=== PATIENT | female | born 1940 | race Caucasian/White ===

== ENCOUNTER → 2020-11-06 03:36 | Outpatient (CLI) | payer MEDICARE, SELFPAY ==
[2020-11-08 12:58] LABS: SARS-CoV-2 RNA PCR Negative
== END ==
PROVIDERS: PCP Family Medicine; Visit Provider Internal Medicine Gastroenterology
DX: Z01.812 Encounter for preprocedural laboratory examination (principal); Z20.822 Contact with and (suspected) exposure to COVID-19
CPT/HCPCS: C9803; U0003; U0005

== ENCOUNTER 2020-11-09 01:40 | Day surgery (SDC) | payer MEDICARE, SELFPAY ==
[2020-10-31 14:43] VITALS: BMI 25.7
[2020-11-09 08:47] VITALS: BP 162/69; PULSE 95; RESP 18; TEMP 35.9; O2SAT 98
[2020-11-09] MEDS: LACTATED RINGERS 1,000 ML 150 ML IV CONT (09:01)
[2020-11-09 09:06] LABS: Glucose Point of Care 182 mg/dl (65-105)
--- NOTE | 2020-11-09 10:03 | PM.HPGS ---
History of Present Illness History of Present Illness Consent: Risks, benefits, and alternatives have been discussed and questions answered. Patient agrees to proceed with procedure. Chief complaint: iron def, anemia Narrative: Mere Woods is a 79 year old female referred for colon cancer screening. She also has been found to be anemic recently Review of Systems Review of Systems: All systems reviewed & are unremarkable except as noted in HPI and below PMFSH Past Medical History Medical History Benign essential hypertension with target blood pressure below 140/90 Gastro-esophageal reflux disease without esophagitis Iron deficiency anemia, unspecified Type 2 diabetes mellitus with diabetic neuropathy, unspecified Surgical History Surgical History H/O arthroscopy of shoulder H/O cataract extraction Family History Family History Sibling Diabetes mellitus Family history of lung cancer, Onset Age: 75 Family history of malignant neoplasm of bone Mother Diabetes mellitus Hypertension Family history of cardiovascular disease Father Family history of cardiovascular disease Social History Social History Smoking packs per day: 1 Smoking cigarettes per day: 20.0 Years smoked: 35 Smoking pack-years: 35.00 Smoking status: Former smoker Tobacco type: cigarettes Alcohol intake: never Substance use: never Substance use type: does not use Living arrangements: alone Spiritual care concerns: No Meds Home Medications and Allergies Home Medications Medication Instructions Recorded Confirmed Type aspirin 81 mg tablet,delayed 81 mg PO DAILY 05/11/19 10/31/20 History release magnesium 250 mg tablet 250 mg PO DAILY 05/11/19 10/31/20 History blood sugar diagnostic #100 each 12/28/19 10/11/20 Rx blood-glucose meter #1 each 12/30/19 10/11/20 Rx metformin 500 mg tablet 1,000 mg PO BID #360 tablet 01/12/20 10/31/20 Rx hydrochlorothiazide 12.5 mg capsule 12.5 mg PO DAILY #90 cap 02/11/20 10/31/20 Rx glimepiride 4 mg tablet 4 mg PO QAM #90 tablet 05/19/20 10/31/20 Rx pravastatin 40 mg tablet 40 mg PO DAILY #90 tablet 08/15/20 10/31/20 Rx ferrous sulfate 325 mg (65 mg 325 mg PO BID #60 tablet 10/11/20 10/31/20 Rx iron) tablet telmisartan 80 mg tablet 80 mg PO DAILY #30 tablet 10/11/20 10/31/20 Rx gabapentin 300 mg PO HS 10/31/20 10/31/20 History omega-3 fatty acids-fish oil 1 cap PO DAILY 10/31/20 10/31/20 History [[place] 3 Fish Oil] Allergies Allergy/AdvReac Type Severity Reaction Status Date / Time cephalexin Allergy Intermediate itching Verified 11/09/20 08:45 ezetimibe Allergy Intermediate Muscle Pain Verified 11/09/20 08:45 rosuvastatin Allergy Intermediate Muscle Pain Verified 11/09/20 08:45 simvastatin [Vytorin] Allergy Intermediate Muscle Pain Verified 11/09/20 08:45 tramadol Allergy Intermediate Hives Verified 11/09/20 08:45 clarithromycin AdvReac Intermediate Nausea Verified 11/09/20 08:45 codeine AdvReac Intermediate Nausea Verified 11/09/20 08:45 oxycodone AdvReac Intermediate Nausea Verified 11/09/20 08:45 Sulfa (Sulfonamide AdvReac Intermediate Nausea Verified 11/09/20 08:45 Antibiotics) TRAMADOL HCL Allergy Intermediate Hives Uncoded 11/09/20 08:45 Vital Signs Vital Signs - 24 hr 11/09/20 08:47 Temperature 35.9 C L Pulse Rate 95 Respiratory Rate 18 Blood Pressure 162/69 H Pulse Oximetry 98 Exam Const: General: alert Orientation/consciousness: patient oriented x3 Resp: Auscultation: clear to auscultation bilaterally Cardio: Rhythm: regular rhythm GI: GI Palp: Yes Soft to palpation and No Tenderness to palpation present (GI) Neuro: General: patient oriented x3 Assessment and Plan Assessment and plan (1) Colon can
[2020-11-09 10:21] VITALS: BP 150/86; PULSE 107; RESP 19; O2SAT 96
[2020-11-09 10:31] VITALS: BP 163/90; PULSE 94; RESP 20; O2SAT 96
[2020-11-09 10:41] VITALS: BP 144/102; PULSE 88; RESP 25; O2SAT 99
== END 2020-11-09 10:58 | disposition home or self-care (01) ==
PROVIDERS: PCP Family Medicine; Visit Provider Internal Medicine Gastroenterology
PROC: 0DJD8ZZ Inspection of Lower Intestinal Tract, Via Natural or Artificial Opening Endoscopic (ICD-10-PCS; CPT 45378; principal; 2020-11-09 11:00)
DX: Z12.11 Encounter for screening for malignant neoplasm of colon (principal); I10 Essential (primary) hypertension; K21.9 Gastro-esophageal reflux disease without esophagitis; D50.9 Iron deficiency anemia, unspecified; E11.40 Type 2 diabetes mellitus with diabetic neuropathy, unspecified; Z87.891 Personal history of nicotine dependence; K57.30 Diverticulosis of large intestine without perforation or abscess without bleeding
CPT/HCPCS: G0121; 82948; J2704; J7120

== ENCOUNTER → 2021-11-07 09:47 | Outpatient (CLI) | payer MEDICARE, SELFPAY ==
--- NOTE | ~2021-11-07 | XR_ITS ---
XR lumbar spine 6V w bending 11/07/2021 10:23 Indication: Low back pain Procedure: 7 views of the lumbar spine including flexion/extension views Comparison: No prior studies for comparison. Findings: There is significant loss of disc height at all lumbar levels. Vertebral body heights are m aintained. No significant alteration of alignment with flexion/extension. There is mild dextrocurvatu re of the lumbar spine centered at L2. Pedicles intact. Sacral foramen are symmetric. There are soo nal osteophytes at multiple levels. There is atherosclerosis of the aorta and iliac vessels. There is atherosclerosis of the splenic artery. Impression: 1: Severe lumbar spondylosis. Reviewed, dictated and finalized at location A. Impression: 1: Severe lumbar spondylosis.
== END ==
PROVIDERS: PCP Family Medicine; Visit Provider Family Medicine
DX: M47.816 Spondylosis without myelopathy or radiculopathy, lumbar region (principal); I70.209 Unspecified atherosclerosis of native arteries of extremities, unspecified extremity; I70.0 Atherosclerosis of aorta
CPT/HCPCS: 72114

== ENCOUNTER 2022-06-05 10:04 | Outpatient (CLI) | payer MEDICARE, SELFPAY ==
--- NOTE | ~2022-06-05 | DEXA_ITS ---
Bone Density Report Name: LILIBETH CARBAJAL Age: 81 Sex: Female Ethnicity: White Date of : 1940 Indication: osteopenia; height loss; postmenopausal Referring Provider: FAMILIA DYE Study: Bone densitometry was performed. Exam Date: June 05, 2022 Accession number: [id number] Bone Density: Region BMD T-score Z-score Classification AP Spine(L1-L4) 1.178 1.2 3.9 Normal Femoral Neck (Left) 0.685 -1.5 0.8 Osteopenia Total Hip (Left) 0.815 -1.0 1.0 Normal Femoral Neck (Right) 0.673 -1.6 0.7 Osteopenia Total Hip (Right) 0.780 -1.3 0.8 Osteopenia Total Hip Mean 0.798 -1.2 0.9 Osteopenia World Health Organization criteria for BMD impression classify patients as: Normal (T-score at or above -1.0), Osteopenia (T-score between -1.0 and -2.5), or Osteoporosis (T-score at or below -2.5). 10-year Fracture Risk(1): Major Osteoporotic Fracture 14% Hip Fracture 3.3% Reported Risk Factors: [place] (), Neck BMD=0.673, BMI=26.3 (1) FRAX(R) Version 3.08. Fracture probability calculated for an untreated patient. Fracture probability may be lower if the patient has received treatment. Previous Exams: Region Exam Age BMD T-score BMD Change BMD Change Date g/cm2 vs Baseline vs Previous AP Spine (L1-L4) 06/05/2022 81 1.178 1.2 0.086 (7.9%)# 0.086 (7.9%)# 05/10/2011 70 1.092 0.4 Total Hip(Left) 06/05/2022 81 0.815 -1.0 -0.061 (-7.0%) -0.061 (-7.0%) 05/10/2011 70 0.877 -0.5 Total Hip(Right) 06/05/2022 81 0.780 -1.3 -0.009 (-1.1%) -0.009 (-1.1%) 05/10/2011 70 0.789 -1.3 *Denotes significance at 95% confidence level, LSC for AP Spine = 0.022 g/cm2, LSC for Total Hip = 0.027 g/cm2 # Denotes dissimilar scan types or analysis methods Clinical Information Provided by Patient: Has used the following medications: Vitamin D, Calcium Patient maximum height was 65 Menopause Age: 43 Drinks caffeinated beverages Onset of menses at age 11 Number of children 2 Impression: The patient has low bone mass, based on the Right Femoral Neck T-score. The patient has an estimated ten-year risk of hip fracture of 3.3% and an estimated ten-year risk of major fracture of 14%, based on the WHO FRAX algorithm. No significant bone loss was observed. Discussion: BONE DENSITY IS LOW AT ONE OR MORE SKELETAL SITES. THE PATIENT'S BMD AND CLINICAL RISK FACTORS CONTRIBUTE TO THIS PATIENT'S INCREASED RISK OF FRACTURE. Th
== END 2022-06-05 10:05 | disposition home or self-care (01) ==
LOC: ANHIMG 10:07
PROVIDERS: PCP Family Medicine; Visit Provider Family Medicine
DX: Z78.0 Asymptomatic menopausal state (principal); M85.89 Other specified disorders of bone density and structure, multiple sites
CPT/HCPCS: 77080

== ENCOUNTER → 2023-02-04 13:33 | Outpatient (CLI) | payer MEDICARE, SELFPAY ==
--- NOTE | ~2023-02-04 | XR_ITS ---
XR knee RT 3V 02/04/2023 13:45 Indication: Right knee pain Procedure: 3 views right knee Comparison: No prior studies for comparison. Findings: No fracture, subluxation or dislocation. No significant joint effusion. No foreign bodies. No significant joint space narrowing. Impression: 1: No significant bone or joint abnormality. Reviewed, dictated and finalized at location L. Impression: 1: No significant bone or joint abnormality.
== END ==
PROVIDERS: PCP Internal Medicine; Visit Provider Nurse Practitioner
DX: M25.561 Pain in right knee (principal)
CPT/HCPCS: 73562

== ENCOUNTER 2023-05-07 09:40 | Emergency (ER) | payer MEDICARE, SELFPAY ==
[2023-05-07 09:51] VITALS: BP 141/81; PULSE 90; RESP 16; TEMP 36.4; O2SAT 99
--- NOTE | 2023-05-07 10:05 | ED.URI ---
HPI - URI/Sore Throat General Chief Complaint: Upper Respiratory Infection Stated Complaint: Sore Throat;[place] eye Time Seen by Provider: 05/07/23 10:10 Source: patient and RN notes reviewed Mode of arrival: ambulatory Limitations: no limitations History of Present Illness HPI Narrative: 82-year-old female presents with concern for scratchy throat. She reports she woke up with her eye crusted shut this morning. She reports drainage to the eye. She denies vision changes. Reports she has taken Nika LEWIS elicited complaint: sore throat Related Data Home Medications Medication Instructions Recorded Confirmed aspirin 81 mg tablet,delayed 81 mg PO DAILY 05/11/19 05/07/23 release magnesium 250 mg tablet 250 mg PO DAILY 05/11/19 05/07/23 omega-3 fatty acids-fish oil 684 1 cap PO DAILY 10/31/20 05/07/23 mg-1,200 mg capsule,delayed release ferrous sulfate 325 mg (65 mg 325 mg PO DAILY 02/28/22 05/07/23 iron) tablet Allergies Allergy/AdvReac Type Severity Reaction Status Date / Time cephalexin Allergy Intermediate itching Verified 05/07/23 10:06 ezetimibe Allergy Intermediate Muscle Pain Verified 05/07/23 10:06 rosuvastatin Allergy Intermediate Muscle Pain Verified 05/07/23 10:06 simvastatin [Vytorin] Allergy Intermediate Muscle Pain Verified 05/07/23 10:06 tramadol Allergy Intermediate Hives Verified 05/07/23 10:06 acetaminophen [From Vicodin] AdvReac Intermediate Hives Verified 05/07/23 10:06 clarithromycin AdvReac Intermediate Nausea Verified 05/07/23 10:06 codeine AdvReac Intermediate Nausea Verified 05/07/23 10:06 hydrocodone [From Vicodin] AdvReac Intermediate Hives Verified 05/07/23 10:06 oxycodone AdvReac Intermediate Nausea Verified 05/07/23 10:06 Sulfa (Sulfonamide AdvReac Intermediate Nausea Verified 05/07/23 10:06 Antibiotics) TRAMADOL HCL Allergy Intermediate Hives Uncoded 05/07/23 10:06 Review of Systems Review of Systems: CONSTITUTIONAL: Denies malaise, chills, sweats, or fever. EYES: Denies visual changes. Reports left eye redness, discharge. ENT: Reports rhinorrhea, congestion, and sore throat. CARDIOVASCULAR: Denies chest pain, palpitations, or edema. RESPIRATORY: Reports cough. Denies dyspnea. GASTROINTESTINAL: Denies abdominal pain, nausea, vomiting, diarrhea SKIN: Denies rash or itching. MUSCULOSKELETAL: Denies myalgia. NEUROLOGIC: Denies headache. All systems reviewed & are unremarkable except as noted in HPI and below PMFSH Past Medical History Medical History Benign essential hypertension with target blood pressure below 140/90 Gastro-esophageal reflux disease without esophagitis Iron deficiency anemia, unspecified Type 2 diabetes mellitus with diabetic neuropathy, unspecified Surgical History Surgical History H/O arthroscopy of shoulder H/O cataract extraction Family History Family History Sibling Diabetes mellitus Family history of lung cancer, Onset Age: 75 Family history of malignant neoplasm of bone Mother Diabetes mellitus Hypertension Family history of cardiovascular disease Father Family history of cardiovascular disease Social History Social History Smoking packs per day: 1 Smoking cigarettes per day: 20.0 Years smoked: 35 Smoking pack-years: 35.00 Smoking status: Former smoker Tobacco type: cigarettes Alcohol intake: current Substance use: never Substance use type: does not use Lack of Transportation: No Lack of Food: Never True Current Housing: I Have Housing Concerned About Future Housing: No Difficulty Paying Gas/Electric Bills: Decline to Answer Difficulty Paying for Meds: No Currently Unemployed: No Education: High School Diploma/GED Difficulty w/ Childcare or F
== END 2023-05-07 10:32 | disposition home or self-care (01) ==
PROVIDERS: Emergency Provider Nurse Practitioner; PCP Internal Medicine
DX: J06.9 Acute upper respiratory infection, unspecified (principal); H10.9 Unspecified conjunctivitis; Z87.891 Personal history of nicotine dependence; I10 Essential (primary) hypertension; K21.9 Gastro-esophageal reflux disease without esophagitis; E11.42 Type 2 diabetes mellitus with diabetic polyneuropathy; D50.9 Iron deficiency anemia, unspecified; Z79.82 Long term (current) use of aspirin
CPT/HCPCS: 87081; 87880; 99213; G0463

== ENCOUNTER 2023-06-18 09:55 | Outpatient (CLI) | payer MEDICARE, SELFPAY ==
--- NOTE | ~2023-06-18 | XR_ITS ---
EXAMINATION: XR shoulder RT min 2V DATE: 06/18/2023 10:24 INDICATION: Right shoulder pain after repetitive lifting TECHNIQUE: AP internally and externally rotated, AP oblique externally rotated and axillary views of the right shoulder were obtained. COMPARISON: None FINDINGS: Normal alignment. No fracture.Mild glenohumeral osteoarthritis with cephalad predominant nonuniform joint space narrowing and small marginal osteophytes along the posterior and inferior glenoid. Modera te acromioclavicular osteoarthritis. Soft tissues are unremarkable. Visualized portions of the lungs are clear. IMPRESSION: Mild right glenohumeral and moderate acromioclavicular osteoarthritis. Reviewed, dictated and finalized at location A. MOLDER
== END 2023-06-18 09:56 ==
PROVIDERS: PCP Internal Medicine; Visit Provider Nurse Practitioner
DX: M19.011 Primary osteoarthritis, right shoulder (principal)
CPT/HCPCS: 73030

== ENCOUNTER 2024-09-13 12:40 | Outpatient (CLI) | payer MEDICARE, SELFPAY ==
--- NOTE | ~2024-09-13 | US_ITS ---
US retroperitoneal comp 09/13/2024 12:58 Procedure: Realtime transabdominal ultrasound of the kidneys and bladder. Indication: Chronic kidney disease stage III Comparison: No prior studies for comparison. Findings: Renal echotexture is normal bilaterally without hydronephrosis, contour deforming mass or r enal calculus. The right kidney measures 9.8 cm and left kidney measures 10.8 cm. There are left luis manuel l cysts, largest measuring 2.7 cm. Bladder within normal limits. Impression: 1: Unremarkable renal ultrasound. No stones, masses or hydronephrosis. Reviewed, dictated and finalized at location A. Impression: 1: Unremarkable renal ultrasound. No stones, masses or hydronephrosis.
== END 2024-09-13 12:41 | disposition home or self-care (01) ==
LOC: GOSHIMG 12:42
PROVIDERS: PCP Specialist; Visit Provider Specialist
DX: N18.30 Chronic kidney disease, stage 3 unspecified (principal)
CPT/HCPCS: 76770

== ENCOUNTER 2025-03-07 11:43 | Inpatient (IN) | payer MEDICARE, SELFPAY ==
--- OUTSIDE RECORDS SUMMARY | 2015-03-01 05:10 | XMS_ITS | Continuity of Care Document ---
Author Organization [facility] Address [address] [place] [address] Phone Care Team Providers Care Lead Tank Mechanic Name Role Phone Rai Hwang MD Unavailable Unavailable Allergies, Adverse Reactions, Alerts Substance Reaction Status Criticality trimethadione Active No Information TRAMADOL HCL Active No Information clarithromycin Nausea / Vomiting Active No Infor mation sulfamethoxazole Nausea/Vomiting Active No Infor mation CEPHALEXIN MONOHYDRATE Nausea/Vomiting Active No Information codeine Nausea/Vomiting Active No Informati on Medications Medication Instructions Dosage Effective Dates (start - stop) Status Comments GEMFIBROZIL (unknown strength) Not Available - Active METFORMIN HCL (unknown strength) Not Available - Active GLIMEPIRIDE (unknown strength) Not Available - Active FISH OIL (unknown strength) Not Available - Active VITAMIN D3 (unknown strength) Not Available - Active Advance Directives Directive Yes / No Effective Date File Name No Information Encounters Encounter Description Practice Location Reason(s) For Visit Diagnoses Date Provider Providers Copied on Encounter [facility] , [address] [facility] [address], [place], [address], [phone] [facility] Dupuytren's contracture of left hand Sep- 5 Eri Atwood. [address] [place], [place], [id number] . tel: [phone] Family History Family Member Type Diagnosis Age At Onset Mother Problem (finding) Heart disease Payers Payer name Insurance type Covered green party ID Authoriza tion(s) Railroad Medicare E2 MB [id number] [place] [employer] F [id number] Social History Type Description Quantity Date Captured Comments Alcohol Use Details No Caffeine Use Details Unknown Tobacco Use Status No Information Smoking Status Unknown if ever smoked Non-Smoking Tobacco Use Details : No Details Available : No Details Available Sex Female Vital Signs Date / Time: Height Weight BMI Pulse Rate Blood Pressure Temperature Respiratory Rate Body Surface Area Head Circumference Head Circ. Percentile Wt./Luis. Percentile BMI percentile Pulse Ox Inhaled Ox 9:59 AM 64.00 in 69.400 kg (153.00 lbs) 26.2 6 kg/m eter (2) 140/79 mm[Hg] Chief Complaint And Reason For Visit No Information Reason For Referral Reason For Referral No Information Plan Of Treatment Date Type Action Status Referral Ordered: RADEX HAND MINIMUM 3 VIEWS LT hand ordered History Of Present Illness Encounter Date Complaint History Of Prese nt Illness No Information Functional Status Date Functional Assessmen t No Information Instructions Date Instruction Additional Infor mation Discussed treatment options. Rel ated to Dupuytren's contracture of left hand Assessments Type Assessment Date assessment Dupuytren's contracture of left hand Patient Care Teams Name Effective Dates (start - stop) Status Members No Information
--- OUTSIDE RECORDS SUMMARY | 2015-03-01 05:10 | XMS_ITS | Continuity of Care Document ---
Author Organization [facility] Address [address] [place] [address] Phone Care Team Providers Care Alligator Trapper Name Role Phone Rai Hwang MD Unavailable [...] Providers Copied on Encounter [facility] , [address] [facility] [address], [place], [address], [phone] [facility] Dupuytren's contracture of left hand Sep- 5 Eri Atwood. [address] [place], [place], [id number] . tel: [phone] Family History Family Member Type Diagnosis Age At Onset Mother Problem (finding) Heart disease Payers Payer name Insurance type Covered alliance party ID Authoriza tion(s) Railroad Medicare E2 MB [id number] [place] [employer] F [id number] Social History Type Description Quantity Date [...]
--- OUTSIDE RECORDS SUMMARY | 2024-08-27 11:15 | XMS_ITS ---
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) Type 2 diabetes mellitus with diabetic chronic kidney disease (E11.22) Active confirmed Problem Proteinuria (16978779) Proteinuria, unspecified (R80.9) Active confirmed Problem Magnesium deficiency (372726572) 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) Active confirmed Encounters Encounter Location Date Provider Diagnosis [facility] [address] [facility] [address] [place] [address] 08/27/2024 Milton Al Chronic kidney disease, unspecified N18.9 ; Essential hypertension I10 ; Hyperlipidemia, unspecified E78.5 ; Type 2 diabetes mellitus with diabetic chronic kidney disease E11.22 ; Proteinuria, unspecified R80.9 and Magnesium deficiency E61.2 Assessments Encounter Date Diagnosis (ICD Code) Assessment Notes Treatment Notes Treatment Clinical Notes Section Notes 08/27/2024 Chronic kidney disease, unspecified (ICD-10 - N18.9) 08/27/2024 Essential hypertension (ICD-10 - I10) 08/27/2024 Hyperlipidemia, unspecified (ICD-10 - E78.5) 08/27/2024 Type 2 diabetes mellitus with diabetic chronic kidney disease (ICD-10 - E11.22) 08/27/2024 Proteinuria, unspecified (ICD-10 - R80.9) 08/27/2024 Magnesium deficiency (ICD-10 - E61.2) Plan Of Treatment Next Appt Details Provider Name:Milton Al , 04/06/2025 02:15:00 PM, [address] [facility], [facility] [address], [place], [address], Progress Notes * FELIX CARBAJALOB:1940 (84 yo F)Acc No.[id number]:08/27/2024 Progress Notes Patient: LILIBETH ACEVEDO Provider: Shae NEWELL MD, F.Evelyn.C.P, F.A.S.N. :1940 A ge:83 Y S ex:Female Date:08/27/2024 Address:[address] [place], [place] [id number] Subjective: * Chief Complaints: * * Medical History: Objective: * Vitals: Assessment: * Assessment: 1. C hronic kidney disease, unspecified - N18.9 (Primary) 2 . E ssential hypertension - I10 3 . H yperlipidemia, unspecified - E78.5 4 .?Type 2 diabetes mellitus with diabetic chronic kidney disease - E11.22 5 . P roteinuria, unspecified - R80.9 6 . M agnesium deficiency - E61.2 ? Plan: * Treatment: * Billing Information: * Visit Code: 04779 Office Visit, New Pt., Level 5. * Procedure Codes: * Electronic signature of Heidi Al MD on 03/07/2025 at 12:44 PM CDT Sign off status: Pending * Provider: Shae NEWELL MD, F.Evelyn.C.P, F.A.S.N. Date: 08/27/2024 Generated for Printing/Faxing/eTransmitting on: 0 03/07/2025 12:44 PM CDT
--- OUTSIDE RECORDS SUMMARY | 2024-08-27 11:15 | XMS_ITS ---
Author Organization [facility] Address [address] [facility] [address] [place] [address] Care Team Providers Care Tester Vibrator Equipment Name Role Phone Milton Al Unavailable [phone] Problems Problem Type SNOMED Code ICD Code Onset Dates Problem Status W/U Status Risk Notes Problem Essential hypertension (75195388) Essential hypertension (I10) Active confirmed Problem Hyperlipidemia (21272663) Hyperlipidemia, unspecified (E78.5) Active confirmed Problem Diabetic renal disease (745554130) Type 2 diabetes mellitus with diabetic chronic kidney disease (E11.22) Active confirmed Problem Proteinuria (21696195) Proteinuria, unspecified (R80.9) Active confirmed Problem Magnesium deficiency (918183965) 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) Active confirmed Encounters Encounter Location Date Provider Diagnosis [facility] [address] [facility] [address] [place] [address] 08/27/2024 Milton Al Chronic kidney disease, unspecified [...] Name:Milton Al , 04/06/2025 02:15:00 PM, [address] [facility], [facility] [address], [place], [address], Progress Notes * FELIX CARBAJALOB:1940 (84 yo F)Acc No.[id number]:08/27/2024 Progress Notes Patient: LILIBETH ACEVEDO Provider: Shae NEWELL MD, F.Evelyn.C.P, F.A.S.N. :1940 A ge:83 Y S ex:Female Date:08/27/2024 Address:[address] [place], [place] [id number] Subjective: * Chief Complaints: * * Medical [...] Treatment: * Billing Information: * Visit Code: 10134 Office Visit, New Pt., Level 5. * Procedure Codes: * Electronic signature of Heidi Al MD on 03/10/2025 at 07:43 AM CDT Sign off status: Pending * Provider: Shae NEWELL MD, F.Evelyn.C.P, F.A.S.N. Date: 08/27/2024 Generated for Printing/Faxing/eTransmitting on: 03/10/2025 07:43 AM CDT
--- OUTSIDE RECORDS SUMMARY | 2024-09-10 09:30 | XMS_ITS ---
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 Encounters Encounter Location Date Provider Diagnosis [facility] [address] [facility] [address] [place] [address] 09/10/2024 Milton Al Chronic kidney disease, stage 3b N18.32 ; Essential hypertension I10 ; Hyperlipidemia, unspecified E78.5 ; Type 2 diabetes mellitus with diabetic chronic kidney disease E11.22 ; Proteinuria, unspecified R80.9 ; Magnesium deficiency E61.2 ; Vitamin D deficiency, unspecified E55.9 and 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, 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 Assessments Encounter Date Diagnosis (ICD Code) Assessment Notes Treatment Notes Treatment Clinical Notes Section Notes 09/10/2024 Chronic kidney disease, stage 3b (ICD-10 - N18.32) 09/10/2024 Essential hypertension (ICD-10 - I10) 09/10/2024 Hyperlipidemia, unspecified (ICD-10 - E78.5) 09/10/2024 Type 2 diabetes mellitus with diabetic chronic kidney disease (ICD-10 - E11.22) 09/10/2024 Proteinuria, unspecified (ICD-10 - R80.9) 09/10/2024 Magnesium deficiency (ICD-10 - E61.2) 09/10/2024 Vitamin D deficiency, unspecified (ICD-10 - E55.9) 09/10/2024 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 :1940 A ge:83 Y S ex:Female Date:09/10/2024 Address:[address] [place] [address] Subjective: * Chief Complaints: * * Medical History: Objective: * Vitals: Assessment: * Assessment: 1. C hronic kidney disease, stage 3b - N18.32 (Primary) 2 . E ssential hypertension - I10 3 . H yperlipidemia, unspecified - E78.5 4 . T ype 2 diabetes mellitus with diabetic chronic kidney disease - E11.22 5 . P roteinuria, unspecified - R80.9 6 . M agnesium deficiency - E61.2 7 . V itamin D deficiency, unspecified - E55.9 8 . N ephropathy 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, medicament or biological substance - N14.2 Plan: * Treatment: * Billing Information: * Visit Code: 13396 Office Visit, Est Pt., Level 4. * Procedure Codes: * Electronic signature of Heidi Al MD on 03/07/2025 at 12:44 PM CDT Sign off status: Pending * Provider: Shae NEWELL MD, F.Evelyn.C.P, F.A.S.N. Date: 09/10/2024 Generated for Printing/Faxing/eTransmitting on: 03/07/2025 12:44 PM CDT
--- OUTSIDE RECORDS SUMMARY | 2024-09-10 09:30 | XMS_ITS ---
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 15 [place] [address] 09/10/2024 Milton Al Chronic kidney disease, stage [...] Name:Milton Al , 04/06/2025 02:15:00 PM, 2043 [facility], [facility] 15, [place], [address], Progress Notes * FELIX CARBAJALOB:1940 (84 yo F)Acc No.[id number]:09/10/2024 Progress Notes Patient: LILIBETH ACEVEDO Provider: Shae NEWELL MD, F.Evelyn.C.P, F.A.S.N. :1940 A ge:83 Y S ex:Female Date:09/10/2024 Address:[address] [place] [address] Subjective: * Chief Complaints: * * Medical [...] Treatment: * Billing Information: * Visit Code: 47267 Office Visit, Est Pt., Level 4. * Procedure Codes: * Electronic signature of Heidi Al MD on 03/10/2025 at 07:44 AM CDT Sign off status: Pending * Provider: Shae NEWELL MD, F.Evelyn.C.P, F.A.S.N. Date: 09/10/2024 Generated for Printing/Faxing/eTransmitting on: 03/10/2025 07:44 AM CDT
--- OUTSIDE RECORDS SUMMARY | 2024-10-15 07:45 | XMS_ITS ---
Author Organization [facility] Address 1400 [facility] 61 [facility] [address] [place] [address] Care Team Providers Care Manager Pulmonary Name Role Phone Aristides lAjit Unavailable [phone] Encounters Encounter Location Date Provider Diagnosis [place] [facility] 2043 [facility] [address] [place] [address] 10/15/2024 Milton Al Plan Of Treatment Next Appt Details Provider Name:Milton Servando , 04/06/2025 02:15:00 PM, 2043 [facility], [address], [place], [address], Progress Notes * RAVENFELIXOB:1940 (84 yo F)Acc No.[id number]:10/15/2024 Progress Notes Patient: LILIBETH ACEVEDO Provider: Shae NEWELL MD, Harshil.Evelyn.C.P, F.A.S.N. :1940 A ge:83 Y S ex:Female Date:10/15/2024 Address:[address] [place] [address] Subjective: * Chief Complaints: * * Medical History: Objective: * Vitals: Assessment: Plan: * Treatment: * Billing Information: * Visit Code: * Procedure Codes: * Electronic signature of Heidi Al MD on 03/10/2025 at 07:43 AM CDT Sign off status: Pending * Provider: Shae NEWELL MD, Harshil.Evelyn.C.P, F.A.S.N. Date: 10/15/2024 Generated for Printing/Faxing/eTransmitting on: 03/10/2025 07:43 AM CDT
--- OUTSIDE RECORDS SUMMARY | 2024-10-15 07:45 | XMS_ITS ---
Author Organization [facility] Address 1400 [facility] 61 [facility] [address] [place] [address] Care Team Providers Care Hand Scraper Name Role Phone Aristides Aljit Unavailable [phone] Encounters Encounter Location Date Provider Diagnosis [place] Office 2043 [facility] [address] [place] [address] 10/15/2024 Milton Al Plan Of Treatment Next Appt Details Provider Name:Milton Servando , 04/06/2025 02:15:00 PM, 2043 [facility], [address], [place], [address], Progress Notes * RAVEN FELIXOB:1940 (84 yo F)Acc No.[id number]:10/15/2024 Progress Notes Patient: LILIBETH ACEVEDO Provider: Shae NEWELL MD, Harshil.Evelyn.C.P, F.A.S.N. :1940 A ge:83 Y S ex:Female Date:10/15/2024 Address:[address] [place] [address] Subjective: * Chief Complaints: * * Medical History: Objective: * Vitals: Assessment: Plan: * Treatment: * Billing Information: * Visit Code: * Procedure Codes: * Electronic signature of Heidi Al MD on 03/07/2025 at 12:44 PM CDT Sign off status: Pending * Provider: Shae NEWELL MD, Harshil.Evelyn.C.P, F.A.S.N. Date: 10/15/2024 Generated for Printing/Faxing/eTransmitting on: 0 03/07/2025 12:44 PM CDT
--- OUTSIDE RECORDS SUMMARY | 2024-10-22 07:00 | XMS_ITS ---
Author Organization [facility] Office Address [address] [place] [address] Care Team Providers Care Fringe Knotter Name Role Phone Servando Milton Unavailable [phone] Problems Problem Type SNOMED Code ICD Code Onset Dates Problem Status W/U Status Risk Notes Problem Chronic kidney disease stage 3A (disorder) (868216986) Chronic kidney disease, stage 3a (N18.31) Active confirmed Encounters Encounter Location Date Provider Diagnosis [place] [facility] 2043 [facility] 15 [place] [address] 10/22/2024 Milton Al Chronic kidney disease, stage 3a N18.31 ; Essential hypertension I10 ; Hyperlipidemia, unspecified E78.5 ; Type 2 diabetes mellitus with diabetic chronic kidney disease E11.22 ; Proteinuria, unspecified R80.9 ; Magnesium deficiency E61.2 ; Vitamin D deficiency, unspecified E55.9 and 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, 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 Assessments Encounter Date Diagnosis (ICD Code) Assessment Notes Treatment Notes Treatment Clinical Notes Section Notes 10/22/2024 Chronic kidney disease, stage 3a (ICD-10 - N18.31) 10/22/2024 Essential hypertension (ICD-10 - I10) 10/22/2024 Hyperlipidemia, unspecified (ICD-10 - E78.5) 10/22/2024 Type 2 diabetes mellitus with diabetic chronic kidney disease (ICD-10 - E11.22) 10/22/2024 Proteinuria, unspecified (ICD-10 - R80.9) 10/22/2024 Magnesium deficiency (ICD-10 - E61.2) 10/22/2024 Vitamin D deficiency, unspecified (ICD-10 - E55.9) 10/22/2024 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 :1940 A ge:83 Y S ex:Female Date:10/22/2024 Address:[address] [place] [address] Subjective: * Chief Complaints: * * Medical History: Objective: * Vitals: Assessment: * Assessment: 1. C hronic kidney disease, stage 3a - N18.31 (Primary) 2 . E ssential hypertension - [...] Treatment: * Billing Information: * Visit Code: 22777 Office Visit, Est Pt., Level 4. * Procedure Codes: * Electronic signature of Heidi Al MD on 03/10/2025 at 07:44 AM CDT Sign off status: Pending * Provider: Shae NEWELL MD, F.Evelyn.C.P, F.A.S.N. Date: 0 10/22/2024 Generated for Printing/Faxing/eTransmitting on: 0 03/10/2025 07:44 AM CDT
--- OUTSIDE RECORDS SUMMARY | 2024-10-22 07:00 | XMS_ITS ---
Author Organization [facility] Office Address [address] [place] [address] Care Team Providers Care Photographer Name Role Phone Servando Milton Unavailable [phone] Problems Problem Type SNOMED Code ICD Code Onset Dates Problem Status W/U Status Risk Notes Problem Chronic kidney disease stage 3A (disorder) (371943260) Chronic kidney disease, stage 3a (N18.31) Active confirmed Encounters Encounter Location Date Provider Diagnosis [place] Office 2043 [facility] 15 [place] [address] 10/22/2024 Milton Al Chronic kidney disease, stage [...] Name:Milton Al , 04/06/2025 02:15:00 PM, 2043 [facility], [address], [place], [address], Progress Notes * FELIX CARBAJALOB:1940 (84 yo F)Acc No.[id number]:10/22/2024 Progress Notes Patient: LILIBETH ACEVEDO Provider: Shae NEWELL MD, F.Evelyn.C.P, F.A.S.N. :1940 A ge:83 Y S ex:Female Date:10/22/2024 Address:[address] [place] [address] Subjective: * Chief Complaints: * * Medical [...] Treatment: * Billing Information: * Visit Code: 17835 Office Visit, Est Pt., Level 4. * Procedure Codes: * Electronic signature of Heidi Al MD on 03/07/2025 at 12:44 PM CDT Sign off status: Pending * Provider: Shae NEWELL MD, F.Evelyn.C.P, F.A.S.N. Date: 0 10/22/2024 Generated for Printing/Faxing/eTransmitting on: 0 03/07/2025 12:44 PM CDT
--- OUTSIDE RECORDS SUMMARY | 2025-01-26 09:30 | XMS_ITS ---
Author Organization [facility] Office Address [address] [place] [address] Care Team Providers Care Cardiopulmonary Technician And Eeg Tech Name Role Phone Aristides Aljit Unavailable [phone] Problems Problem Type SNOMED Code ICD Code Onset Dates Problem Status W/U Status Risk Notes Problem Metabolic disorder (21401230) Metabolic disorder, unspecified (E88.9) Active confirmed Encounters Encounter Location Date Provider Diagnosis [place] [facility] 2043 [facility] 15 [place] [address] 01/26/2025 Milton Al Chronic kidney disease, stage 3a N18.31 ; Essential hypertension I10 ; Hyperlipidemia, unspecified E78.5 ; Type 2 diabetes mellitus with diabetic chronic kidney disease E11.22 ; Proteinuria, unspecified R80.9 ; Magnesium deficiency E61.2 ; Vitamin D deficiency, unspecified E55.9 ; 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, 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 and Metabolic disorder, unspecified E88.9 Assessments Encounter Date Diagnosis (ICD Code) Assessment Notes Treatment Notes Treatment Clinical Notes Section Notes 01/26/2025 Chronic kidney disease, stage 3a (ICD-10 - N18.31) 01/26/2025 Essential hypertension (ICD-10 - I10) 01/26/2025 Hyperlipidemia, unspecified (ICD-10 - E78.5) 01/26/2025 Type 2 diabetes mellitus with diabetic chronic kidney disease (ICD-10 - E11.22) 01/26/2025 Proteinuria, unspecified (ICD-10 - R80.9) 01/26/2025 Magnesium deficiency (ICD-10 - E61.2) 01/26/2025 Vitamin D deficiency, unspecified (ICD-10 - E55.9) 01/26/2025 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 :1940 A ge:84 Y S ex:Female Date:01/26/2025 Address:[address] [place] [id number] Subjective: * Chief Complaints: Objective: Assessment: * Assessment: 1. C hronic kidney [...] drug, medicament or biological substance - N14.2 9 . M etabolic disorder, unspecified - E88.9 Plan: * Billing Information: * Visit Code: 33407 Office Visit, Est Pt., Level 4. * Procedure Codes: * Electronic signature of Heidi Al MD on 03/10/2025 at 07:44 AM CDT Sign off status: Pending * Provider: Shae NEWELL MD, F.Evelyn.C.P, F.A.S.N. Date: 01/26/2025 Generated for Printing/Faxing/eTransmitting on: 03/10/2025 07:44 AM CDT
--- OUTSIDE RECORDS SUMMARY | 2025-01-26 09:30 | XMS_ITS ---
Author Organization [facility] Office Address [address] [place] [address] Care Team Providers Care Family Sociologist Name Role Phone Aristides Aljit Unavailable [phone] Problems Problem Type SNOMED Code ICD Code Onset Dates Problem Status W/U Status Risk Notes Problem Metabolic disorder (36523953) Metabolic disorder, unspecified (E88.9) Active confirmed Encounters Encounter Location Date Provider Diagnosis [place] Office [address] [facility] 15 [place] [address] 01/26/2025 Milton Al Chronic kidney disease, stage [...] , 04/06/2025 02:15:00 PM, 2043 [facility], [facility] 15, [place], [address], Progress Notes * FELIX CARBAJALOB:1940 (84 yo F)Acc No.[id number]:01/26/2025 Progress Notes Patient: LILIBETH ACEVEDO Provider: Shae NEWELL MD, F.Evelyn.C.P, F.A.S.N. :1940 A ge:84 Y S ex:Female Date:01/26/2025 Address:[address] [place], [place] [id number] Subjective: * Chief Complaints: Objective: Assessment: * [...] Plan: * Billing Information: * Visit Code: 98059 Office Visit, Est Pt., Level 4. * Procedure Codes: * Electronic signature of Heidi Al MD on 03/07/2025 at 12:44 PM CDT Sign off status: Pending * Provider: Shae NEWELL MD, F.Evelyn.C.P, F.A.S.N. Date: 01/26/2025 Generated for Printing/Faxing/eTransmitting on: 03/07/2025 12:44 PM CDT
[2025-03-07] VITALS (18 sets, daily range): BP systolic 168–236; BP diastolic 61–88; PULSE 90–109; RESP 15–21; TEMP 36.5–36.6; O2SAT 97–100; BMI 26.3
--- NOTE | ~2025-03-07 | CT_ITS ---
EXAMINATION: CT brain wo con DATE: 03/07/2025 11:57 INDICATION: Blurred vision and dizziness TECHNIQUE: Computed tomography (CT) of the head was performed without intravenous contrast. Sagittal and coronal reconstructions were performed. The mA was adjusted according to patient size. Iterative reconstruction technique was employed. The dose-length product was 605.33 mGy-cm. COMPARISON: None FINDINGS: No acute intracranial hemorrhage, acute infarction or abnormal extra axial fluid collection. Small old lacunar infarct at the head of the left caudate nucleus. There is moderate scattered white matter hypoattenuation consistent with chronic small vessel ischemic disease. Symmetric prominence of the sulci consistent with moderate age-appropriate diffuse cerebral volume loss. Ventricles are normal and symmetric. No mass/mass effect. Changes of bilateral intraocular lens replacement. The orbits and mastoid air cells are normal. Mucosal thickening in the bilateral ethmoid, maxillary and sphenoid sinuses. IMPRESSION: 1. 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 No acute intracranial process. 2. Age-related changes including moderate diffuse volume loss and moderate scattered white matter hypoattenuation consistent with chronic small vessel ischemic disease. Reviewed, dictated and finalized at location A. IMPRESSION: 1. 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 No acute intrac ranial process. 2. Age-related changes including moderate diffuse volume loss and moderate scat tered white matter hypoattenuation consistent with chronic small vessel ischemi c disease.
--- NOTE | ~2025-03-07 | XR_ITS ---
Examination: XR chest 1V portable Clinical History: cva symptoms Comparison: None Technique: Portable AP Findings: Heart size normal. Lungs clear. No acute bony abnormality. IMPRESSION: 1. No acute cardiopulmonary findings given portable technique. Reviewed, dictated and finalized at location R.
--- NOTE | ~2025-03-07 | MR_ITS ---
EXAMINATION: MR brain/brain stem wo/w con DATE: 03/08/2025 11:15 INDICATION: Syncope. TECHNIQUE: Magnetic resonance imaging (MRI) of the brain and brainstem was performed without and with 14 mL MultiHance intravenous contrast. COMPARISON: Head CT 03/07/25 FINDINGS: There are scattered areas of nonspecific increased T2-weighted signal intensity in the cerebral white matter. There are small old infarcts in left cerebellum. There is no intracranial hemorrhage, acute infarction, or abnormal intracranial mass lesion. The ventricles are normal in size. There are likely changes of ocular lens replacement surgeries. There is mucosal thickening in the paranasal sinuses. There are trace bilateral mastoid effusions. IMPRESSION: 1. 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 2. Moderate nonspecific cerebral white matter disease, which likely represents chronic small vessel ischemic disease. Reviewed, dictated and finalized at location E.
--- NOTE | 2025-03-07 11:59 | ECG_ITS ---
Test Date: 2025-03-07 12:03:23 Measurements Intervals [place] Rate: 106 P: 61 SC: 155 QRS: 20 QRSD: 90 T: 81 QT: 339 QTc: 451 Interpretive Statements SINUS TACHYCARDIA WITH OCCASIONAL SUPRAVENTRICULAR PREMATURE COMPLEXES POSSIBLE LEFT ATRIAL ENLARGEMENT [-0.1mV P-WAVE IN V1/V2] PROBABLE INFERIOR MYOCARDIAL INFARCTION , OF INDETERMINATE AGE [35 ms Q WAVE IN II/aVF] WARNING: DATA QUALITY MAY AFFECT INTERPRETATION No previous ECG available for comparison Electronically Signed On 03-07-2025 14:41:23 CDT by Dany Caruso M.D.
[2025-03-07 12:19] LABS: Hematocrit 38.3 % (37.0-47.0); Hemoglobin 12.5 g/dL (12.0-15.0); Immature Granulocyte Percent A 0.3 % (0-0.5); Lymphocytes Absolute Auto 2.01 K/mm3 (0.9-3.2); Mean Corpuscular HGB Conc 32.6 g/dl (32-36); Mean Corpuscular Hemoglobin 27.6 pg (26-34); Mean Corpuscular Volume 84.5 fl (80-100); Nucleated Red Blood Cells Absolute Auto 0.000 K/mm3 (0.0-0.012); Nucleated Red Blood Cells Perc 0.0 % (0.0-0.2); Platelet Count Result 259 k/mm3 (150-375); Red Blood Count 4.53 M/mm3 (4.2-5.4); White Blood Count 6.9 K/mm3 (4.5-10.0)
[2025-03-07 12:30] LABS: INR 1.0; Partial Thromboplastin Time 27.4 Seconds (22.3-36.8); Prothrombin Time 13.8 Seconds (11.1-14.7)
[2025-03-07 12:31] LABS: Alanine Aminotransferase 17 U/L (6-35); Albumin Level 4.3 g/dL (3.5-5.1); Alkaline Phosphatase 94 U/L (38-126); Anion Gap 10 mmol/L (4-12); Aspartate Amino Transferase 24 U/L (14-36); Bilirubin,Total 0.7 mg/dL (0.2-1.3); Blood Urea Nitrogen 26 mg/dL (7-17); Calcium 9.5 mg/dL (8.4-10.2); Carbon Dioxide 26 mmol/L (22-30); Chloride 101 mmol/L (98-107); Estimated CRCL calculation 29 ml/min; Estimated Glomerular Filt Rate 46; Glucose 199 mg/dL (65-110); Potassium 4.1 mmol/L (3.4-5.0); Sodium 137 mmol/L (137-145); Total Protein 8.1 g/dL (6.3-8.2)
[2025-03-07 12:42] LABS: Troponin I < 0.012 ng/mL (0.000-0.034)
--- OUTSIDE RECORDS SUMMARY | 2025-03-07 12:44 | XMS_ITS | Patient Health Record ---
Author Organization [facility] Address 1400 [facility] 61 [facility] [address] [place] [address] Care Team Providers Care Model Set Artist Name Role Phone Milton Al Unavailable [phone] Reason For Referral No Information Medications Medication SIG (Take, Route, Frequency, Duration) Notes Start Date End Date Status Calcitriol 0.25 MCG 1 capsule Orally Onc e a day; Duration: 90 day(s) 09/10/2024 06/06/2025 Active Losartan Potassium 50 MG 1 tablet Orally Once a day; Duration: 90 09/10/2024 Active Ergocalciferol 1.25 MG (27969 UT) 1 capsule Orally Once a week; Duration: 90 day(s) 09/10/2024 06/06/2025 Active Problems Problem Type SNOMED Code ICD Code Onset Dates Problem Status W/U Status Risk Notes Problem Diabetic renal disease (912071028) Type 2 diabetes mellitus with diabetic chronic kidney disease (E11.22) Active confirmed Problem Vitamin D deficiency (80554009) Vitamin D deficiency, unspecified (E55.9) Active confirmed Problem Magnesium deficiency (699195120) 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) Active confirmed Problem Metabolic disorder (34268237) Metabolic disorder, unspecified (E88.9) Active confirmed Problem Proteinuria (98642556) Proteinuria, unspecified (R80.9) Active confirmed Problem Hyperlipidemia (15069477) Hyperlipidemia, unspecified (E78.5) Active confirmed Problem Essential hypertension (08883783) Essential hypertension (I10) Active confirmed Problem Chronic kidney disease stage 3A (disorder) (982737034) Chronic kidney disease, stage 3a (N18.31) Active confirmed Problem 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, 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 Encounters Encounter Location Date Provider Diagnosis [place] [facility] 2043 [facility] 15 [place] [address] 08/27/2024 Milton Al Chronic kidney disease, unspecified N18.9 ; Essential hypertension I10 ; Hyperlipidemia, unspecified E78.5 ; Type 2 diabetes mellitus with diabetic chronic kidney disease E11.22 ; Proteinuria, unspecified R80.9 and Magnesium deficiency E61.2 [facility] [address] [address] 09/10/2024 Milton Al Chronic kidney disease, stage 3b N18.32 ; Essential hypertension I10 ; Hyperlipidemia, unspecified E78.5 ; Type 2 diabetes mellitus with diabetic chronic kidney disease E11.22 ; Proteinuria, unspecified R80.9 ; Magnesium deficiency E61.2 ; Vitamin D deficiency, unspecified E55.9 and 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, 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 [place] [facility] [address] [address] 10/22/2024 Milton Al Chronic kidney disease, stage 3a N18.31 ; Essential hypertension I10 ; Hyperlipidemia, unspecified E78.5 ; Type 2 diabetes mellitus with diabetic chronic kidney disease E11.22 ; Proteinuria, unspecified R80.9 ; Magnesium deficiency E61.2 ; Vitamin D deficiency, unspecified E55.9 and 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, 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 [place] [facility] [address] [address] 01/26/2025 Milton Al Chronic kidney disease, stage 3a N18.31 ; Essential hypertension I10 ; Hyperlipidemia, unspecified E78.5 ; Type 2 diabetes mellitus with diabetic chronic kidney disease E11.22 ; Proteinuria, unspecified R80.9 ; Magnesium deficiency E61.2 ; Vitamin D deficiency, unspecified E55.9 ; 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, 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 and Metabolic disorder, unspecified E88.9 [place] [facility] [address] [address] 09/10/2024 Milton Al Assessments Encounter Date Diagnosis (ICD Code) Assessment Notes Treatment Notes Treatment Clinical Notes Section Notes 08/27/2024 Chronic kidney disease, unspecified (ICD-10 - N18.9) 09/10/2024 Chronic kidney disease, stage 3b (ICD-10 - N18.32) 10/22/2024 Chronic kidney disease, stage 3a (ICD-10 - N18.31) 01/26/2025 Essential hypertension (ICD-10 - I10) 01/26/2025 Chronic kidney disease, stage 3a (ICD-10 - N18.31) 10/22/2024 Essential hypertension (ICD-10 - I10) 01/26/2025 Hyperlipidemia, unspecified (ICD-10 - E78.5) 09/10/2024 Essential hypertension (ICD-10 - I10) 08/27/2024 Essential hypertension (ICD-10 - I10) 08/27/2024 Hyperlipidemia, unspecified (ICD-10 - E78.5) 09/10/2024 Hyperlipidemia, unspecified (ICD-10 - E78.5) 10/22/2024 Hyperlipidemia, unspecified (ICD-10 - E78.5) 01/26/2025 Type 2 diabetes mellitus with diabetic chronic kidney disease (ICD-10 - E11.22) 01/26/2025 Proteinuria, unspecified (ICD-10 - R80.9) 10/22/2024 Type 2 diabetes mellitus with diabetic chronic kidney disease (ICD-10 - E11.22) 09/10/2024 Type 2 diabetes mellitus with diabetic chronic kidney disease (ICD-10 - E11.22) 08/27/2024 Type 2 diabetes mellitus with diabetic chronic kidney disease (ICD-10 - E11.22) 08/27/2024 Proteinuria, unspecified (ICD-10 - R80.9) 09/10/2024 Proteinuria, unspecified (ICD-10 - R80.9) 01/26/2025 Magnesium deficiency (ICD-10 - E61.2) 10/22/2024 Proteinuria, unspecified (ICD-10 - R80.9) 01/26/2025 Vitamin D deficiency, unspecified (ICD-10 - E55.9) 10/22/2024 Magnesium deficiency (ICD-10 - E61.2) 08/27/2024 Magnesium deficiency (ICD-10 - E61.2) 09/10/2024 Magnesium deficiency (ICD-10 - E61.2) 09/10/2024 Vitamin D deficiency, unspecified (ICD-10 - E55.9) 10/22/2024 Vitamin D deficiency, unspecified (ICD-10 - E55.9) 01/26/2025 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
--- OUTSIDE RECORDS SUMMARY | 2025-03-07 12:44 | XMS_ITS | Clinical Summary ---
Author Organization [facility] Care Team Providers Care Parts Sales Manager Name Role Phone Unavailable Primary Care Provider Unavailabl e Social History Tobacco Use Types Packs/Day Years Used Date Smoking Tobacco: Never Assessed Comments Unknown Sex and Gender Information Value Date Recorded Sex Assigned at Not on file Legal Sex Female 9:19 AM CDT Gender Identity Not on file Sexual Orientation Not on file Plan of Treatment Health Maintenance Due Date Last Done Comments Hepatitis C Virus (HCV) Screening 1940 TdaP Immunization 1940 Pneumococcal Immunization (50+ years) (1 of 1 - PCV) 12/22/1991 Zoster Immunization (1 of 2) 12/22/1991 Respiratory Syncytial Virus (RSV) Immunization (Adult) (1 - 1-dose 75+ series) 2016 SARS-COV-2 Immunization ( season) 2024 09/22/2020, 08/25/2020 Influenza Immunization (#1) 02/14/202502/14, 04/06/2020, 03/11/2019, Additional history exists DTaP/Tdap/Td Immunization Discontinued 02/28/2021 Hepatitis B Immunization Aged Out No longer eligible based on patient's age to complete this topic Human Papillomavirus (HPV) Immunization Aged Out No longer eligible based on patient's age to complete this topic Meningococcal Immunization (ACWY) Aged Out No longer eligible based on patient's age to complete this topic Rotavirus Immunization Aged Out No lo nger eligible based on patient's age to complete this topic
--- OUTSIDE RECORDS SUMMARY | 2025-03-07 12:44 | XMS_ITS | Clinical Summary ---
Author Organization [facility] Address [address] [place] [address] Care Team Providers Care Bioinformatics Assistant Name Role Phone Unavailable Primary Care Provider Unavailabl e Source Comments [facility],non-owned Affiliates and Associated Physician Practices is amultiple site organization consisting of ambulatory clinics and hospital sitesin [place], [place]. This disclosure is being madepursuant to the Care Everywhere program and may not contain all information available regarding this patient. Last updated 18.[facility] Allergies Active Allergy Reactions Criticality Noted Date Comments Cephalexin 11/09/2016 Clarithromycin 11/09/2016 Codeine 11/09/2016 Diazepam 11/09/2016 Oxycodone 11/09/2016 Sulfa Drugs 11/09/2016 Tramadol 11/09/2016 Medications * Be aware that medications may not be up to date on this document. Alwaysverify current medications with the patient. GEMFIBROZIL PO Activ e METFORMIN HCL PO Active GLIMEPIRIDE PO Activ e Duncan-3 Fatty Acids (OMEGA 3 PO) Active Cholecalciferol (VITAMIN D PO) Activ e Magnesium Oxide -Mg Supplement 400 MG Active fluticasone propionate (FLONASE) 50 MCG/ACT nasal spray Wilson 1 Wilson into each nostril 2 times daily 1 Bottle 1 11/09/2016 Active Active Problems No known active problems Immunizations Immunization Administration Dates Next Due INFLUENZA VACCINE, HIGH-DOSE , QUADR. (FLUZONE HIGH-DOSE QUADRIVALENT; 65Y+), 0.7 ML (HD-IIV4) 04/06/2020,03/11/2019 Social History Tobacco Use Types Packs/Day Years Used Date Smoking Tobacco: Former Comments Unknown Sex and Gender Information Value Date Recorded Sex Assigned at Not on file Legal Sex Female 1:10 PM CDT Gender Identity Not on file Sexual Orientation Not on file Last Filed Vital Signs Vital Sign Reading Time Taken Comments Blood Pressure 118/68 11/09/2016 2:59 PM CDT Pulse 98 11/09/2016 2:59 PM CDT Temperature 36.7 C (98.1 F) 11/09/2016 2:59 PM CDT Respiratory Rate 20 11/09/2016 2:59 PM CDT Oxygen Saturation 94% 11/09/2016 2:59 PM CDT Inhaled Oxygen Concentration - - Weight 69.4 kg (153 lb) 11/09/2016 2:59 PM CDT Height 163.8 cm (5' 4.5) 11/09/2016 2:59 PM CDT Body Mass Index 25.86 11/09/2016 2:59 PM CDT Plan of Treatment Health Maintenance Due Date Last Done Comments BONE DENSITY TESTING 1940 DTAP/TDAP/TD VACCINES (1 - Tdap) 1960 PNEUMOCOCCAL VACCINE 50+ (1 of 1 - PCV) 12/22/1991 ZOSTER VACCINE (1 of 2) 12/22/1991 Respiratory Syncytial Virus (RSV) Vaccine Pt: or over 60 yrs (1 - 1-dose 75+ series) 2016 DEPRESSION SCREENING 06/16/2024 COVID-19 VACCINE (1 - 2023-2 5 season) 2025 INFLUENZA VACCINE (#1) 2025 0, 03/11/2019 HEPATITIS B VACCINE Aged Out No longe r eligible based on patient's age to complete this topic HIB VACCINE Aged Out No longer eligi ble based on patient's age to complete this topic HPV VACCINE Aged Out No longer eligi ble based on patient's age to complete this topic MENINGOCOCCAL (Group B) VACCINE SHARED DECISION-MAKING Aged Out No longer eligible based on patient's age to complete this topic MENINGOCOCCAL GROUPS A/C/Y/W VACCINE Aged Out No longer eligible b ased on patient's age to complete this topic Insurance MEDICARE [employer]
--- NOTE | 2025-03-07 14:28 | ED_ITS ---
HPI - General Adult General Chief complaint: Neuro Symptoms/Deficit Stated complaint: Vision changes, feels lightheaded-1000 Time Seen by Provider: 03/07/25 13:28 History of Present Illness HPI narrative: Patient a 84-year-old female who presents emergency department with chief complaint of feeling off-balance. Patient reports that this morning she had an episode where she felt very lightheaded as though she was going to pass out and then felt as though her vision became black patient states the symptoms lasted until she came to the emergency department and reports that her symptoms have essentially resolved at this point. Patient reports she is a diabetic and her blood sugar was running in the 200s patient denies chest pain denies shortness of breath denies motor weakness in her arms or legs denies dysarthria Related Data Home Medications ?Medication ?Instructions ?Recorded ?Confirmed ?Last Taken ?Type aspirin 81 mg tablet,delayed 81 mg PO DAILY 05/11/19 0 06/30/23 11/08/20 History release magnesium 250 mg tablet 250 mg PO DAILY 05/11/1911/08/20 History omega-3 fatty acids-fish oil 684 1 cap PO DAILY 06/30/23 11/08/20 History mg-1,200 mg capsule,delayed release ferrous sulfate 325 mg (65 mg 325 mg PO DAILY 02/28/22 06/30/23 Unknown History iron) tablet Allergies Allergy/AdvReac Type Severity Reaction Status Date / Time cephalexin Allergy Intermediate itching Verified 06/30/23 11:43 ezetimibe Allergy Intermediate Muscle Pain Verified 06/30/23 11:43 rosuvastatin Allergy Intermediate Muscle Pain Verified 06/30/23 11:43 simvastatin (Vytorin) Allergy Intermediate Muscle Pain Verified 06/30/23 11:43 tramadol Allergy Intermediate Hives Verified 06/30/23 11:43 acetaminophen (From Vicodin) AdvReac Intermediate Hives Verified 06/30/23 11:43 clarithromycin AdvReac Intermediate Nausea Verified 06/30/23 11:43 codeine AdvReac Intermediate Nausea Verified 06/30/23 11:43 hydrocodone (From Vicodin) AdvReac Intermediate Hives Verified 06/30/23 11:43 oxycodone AdvReac Intermediate Nausea Verified 06/30/23 11:43 Sulfa (Sulfonamide AdvReac Intermediate Nausea Verified 06/30/23 11:43 Antibiotics) TRAMADOL HCL Allergy Intermediate Hives Uncoded 06/30/23 11:43 Review of Systems 2 Review of Systems: A 10 system review of systems was completed on the patient and is negative except for what is stated in the HPI. Nursing and ancillary documentation was reviewed. [facility] Past Medical History Medical History Type 2 diabetes mellitus with diabetic neuropathy, unspecified Iron deficiency anemia, unspecified Benign essential hypertension with target blood pressure below 140/90 Gastro-esophageal reflux disease without esophagitis Surgical History Surgical History H/O arthroscopy of shoulder H/O cataract extraction Family History Family History Sibling Diabetes mellitus Family history of lung cancer, Onset Age: 75 Family history of malignant neoplasm of bone Mother Diabetes mellitus Hypertension Family history of cardiovascular disease Father Family history of cardiovascular disease Social History Social History Smoking packs per day: 1 Smoking cigarettes per day: 20.0 Years smoked: 35 Smoking pack-years: 35.00 Smoking status: Former smoker Tobacco type: cigarettes Alcohol intake: current Substance use: never Substance use type: does not use Lack of Transportation: No Lack of Food: Never True Current Housing: I Have Housing Concerned About Future Housing: No Difficulty Paying Gas/Electric Bills: No Difficulty Paying for Meds: No Currently Unemployed: No Education: High School Diploma/GED Difficulty w/ Childcare or Family Care: No Living arrangements: alone Spiritual care concerns: No Exam 2 Narrative: GENERAL: Well-appearing, well-nourished, and in no acute distress. HEAD: Normocephalic, atraumatic. EYES: PERRLA and EOMI. ENT: Nares clear, no rhinorrhea or epistaxis. Mucous membranes moist. NECK: Supple. CHEST: Clear to auscultation. No respiratory distress. HEART: Regular rate and rhythm. No murmur heard. Normal peripheral pulses. ABDOMEN: Soft, nontender, nondistended, normal active bowel sounds. EXTREMITIES: Normal range of motion. No edema. SKIN: Warm, dry, no rash. NEURO: No focal deficits. Alert and oriented x3. PSYCH: Normal mood and affect. Course Vital Signs Vital signs: Vital Signs Temperature 36.6 C 03/07/25 12:00 Pulse Rate 106 H 03/07/25 12:00 Respiratory Rate 16 03/07/25 12:00 Blood Pressure 236/86 H 03/07/25 12:00 Pulse Oximetry 99 03/07/25 12:00 Oxygen Delivery Room Air 03/07/25 12:00 Temperature 36.6 C 03/07/25 12:00 Pulse Rate 96 03/07/25 14:15 Respiratory Rate 17 03/07/25 14:15 Blood Pressure 178/77 H 03/07/25 14:15 Pulse Oximetry 100 03/07/25 14:15 Oxygen Delivery Room Air 03/07/25 12:00 Medical Decision Making MDM Narrative Medical decision making narrative: Differential diagnosis includes TIA, CVA, Laboratory studies were obtained on the patient showed no significant abnormality other than a glucose of 199 creatinine is 1.[address] head showed no acute abnormality but did show an old lacunar infarct and age- related changes Given the CT showed old lacunar infarcts concern for this being TIA rales significantly increased. Case was discussed with the hospitalist patient will be admitted to the hospital for MRI and observation Vital Signs Vital Signs: Vital Signs Temperature 36.6 C 03/07/25 12:00 Pulse Rate 106 H 03/07/25 12:00 Respiratory Rate 16 03/07/25 12:00 Blood Pressure 236/86 H 03/07/25 12:00 Pulse Oximetry 99 03/07/25 12:00 Oxygen Delivery Room Air 03/07/25 12:00 Temperature 36.6 C 03/07/25 12:00 Pulse Rate 96 03/07/25 14:15 Respiratory Rate 17 03/07/25 14:15 Blood Pressure 178/77 H 03/07/25 14:15 Pulse Oximetry 100 03/07/25 14:15 Oxygen Delivery Room Air 03/07/25 12:00 Lab Data 03/07/25 12:13 03/07/25 12:13 Labs: Lab Results 03/07/25 03/07/25 Range/Units 11:51 12:13 WBC 6.9 (4.5-10.0) K/mm3 RBC 4.53 (4.2-5.4) M/mm3 Hgb 12.5 (12.0-15.0) g/dL Hct 38.3 (37.0-47.0) % MCV 84.5 (80-100) fl MCH 27.6 (26-34) pg MCHC 32.6 (32-36) g/dl RDW 13.3 (11.5-14.5) % Plt Count 259 (150-375) k/mm3 MPV 9.2 (7.4-10.4) fl Immature Gran % (Auto) 0.3 (0-0.5) % Neut % (Auto) 59.9 (45.5-73.1) % Lymph % (Auto) 29.0 (18.3-44.2) % [place] % (Auto) 6.2 (2.6-8.5) % Eos % (Auto) 3.9 (0-4.4) % Baso % (Auto) 0.7 (0.2-1.2) % Lymph # (Auto) 2.01 (0.9-3.2) K/mm3 [place] # (Auto) 0.4 (0.1-0.6) K/mm3 Eos # (Auto) 0.3 (0-0.3) K/mm3 Baso # (Auto) 0.1 (0.0-0.1) K/mm3 Abs Immat Gran (auto) 0.02 (0.00-0.031) K/mm3 Absolute Neuts (auto) 4.1 (1.3-6.7) K/mm3 Absolute Nucleated RBC 0.000 (0.0-0.012) K/mm3 Nucleated RBC % 0.0 (0.0-0.2) % PT 13.8 (11.1-14.7) Seconds INR 1.0 APTT 27.4 (22.3-36.8) Seconds Sodium 137 (137-145) mmol/L Potassium 4.1 (3.4-5.0) mmol/L Chloride 101 (98-107) mmol/L Carbon Dioxide 26 (22-30) mmol/L Anion Gap 10 (4-12) mmol/L BUN 26 H (7-17) mg/dL Creatinine 1.14 H (0.7-1.0) mg/dL Estim Creat Clear Calc 29 ml/min Estimated GFR 46 L (59 - ) Glucose 199 H (65-110) mg/dL POC Capillary Glucose 201 H (65-105) mg/dl Calcium 9.5 (8.4-10.2) mg/dL Total Bilirubin 0.7 (0.2-1.3) mg/dL AST 24 (14-36) U/L ALT 17 (6-35) U/L Alkaline Phosphatase 94 (38-126) U/L Troponin I < 0.012 (0.000-0.034) ng/mL Total Protein 8.1 (6.3-8.2) g/dL Albumin 4.3 (3.5-5.1) g/dL Discharge Plan Discharge Clinical Impression: Near syncope Patient Disposition: Still a Patient Condition: Stable Patient Language: Beninese Prescriptions: No Action aspirin 81 mg tablet,delayed release (DR/EC) 81 mg PO DAILY magnesium 250 mg tablet 250 mg PO DAILY ferrous sulfate 325 mg (65 mg iron) tablet 325 mg PO DAILY doxycycline hyclate 100 mg tablet 100 mg PO BID Qty: 20 0RF prednisone 10 mg tablet 10 mg PO BID Qty: 10 0RF cholecalciferol (vitamin D3) 10 mcg (400 unit) capsule 20 mcg PO DAILY Qty: 60 0RF omega-3 fatty acids-fish oil 684-1,200 mg Capsule,Delayed Release(Dr/Ec) 1 cap PO DAILY (DME) blood sugar diagnostic Strip See Rx Instructions .ROUTE .MEDSUPPLY Qty: 100 12RF Rx Instructions: glucose test strips test \once daily with lancets (DME) blood-glucose meter Kit See Rx Instructions .ROUTE .MEDSUPPLY Qty: 1 0RF Rx Instructions: glucose meter test once daily-- Dx: E11.42 glimepiride 4 mg tablet 4 mg PO QAM Qty: 90 3RF benzonatate 200 mg capsule 200 mg PO TID PRN (Reason: cough) Qty: 20 0RF telmisartan 80 mg tablet 80 mg PO DAILY Qty: 90 1RF pravastatin 40 mg tablet 40 mg PO DAILY Qty: 30 0RF Rx Instructions: NEEDS APPOINTMENT FOR FURTHER REFILLS hydrochlorothiazide 12.5 mg capsule 12.5 mg PO DAILY Qty: 30 0RF Rx Instructions: LAST REFILL UNTIL SEEN-NEEDS APPOINTMENT metformin 1,000 mg tablet 1,000 mg PO BID Qty: 180 1RF Follow-up/Referrals: Servando,Milton Sandhu MD [Primary Care Provider, Unknown] Time of Disposition: 15:05
--- OUTSIDE RECORDS SUMMARY | 2025-03-07 14:30 | XMS_ITS | Clinical Summary ---
Author Organization [facility] Care Team Providers Care Venetian Blind Maker Name Role Phone Unavailable Primary Care Provider [...]
--- OUTSIDE RECORDS SUMMARY | 2025-03-07 14:30 | XMS_ITS | Clinical Summary ---
Author Organization [facility] Address [address] [place] [address] Care Team Providers Care Sharepoint Developer Name Role Phone Unavailable Primary Care Provider Unavailabl e Source Comments [facility],non-owned Affiliates and Associated Physician Practices is amultiple site organization consisting of ambulatory clinics and hospital sitesin [place], [place], [place] and [place]. This disclosure is being madepursuant to the Care Everywhere program and may not contain all information available regarding this patient. Last updated 18.[facility] Allergies Active Allergy Reactions Criticality Noted Date Comments Cephalexin 11/09/2016 Clarithromycin 11/09/2016 Codeine 11/09/2016 Diazepam 11/09/2016 Oxycodone 11/09/2016 Sulfa Drugs 11/09/2016 Tramadol 11/09/2016 Medications * Be aware that medications may not be up to date on this document. Alwaysverify current medications with the patient. GEMFIBROZIL PO Activ e METFORMIN HCL PO Active GLIMEPIRIDE PO Activ e [place]-3 Fatty Acids (OMEGA 3 PO) Active Cholecalciferol (VITAMIN D PO) Activ e Magnesium Oxide -Mg Supplement 400 MG Active fluticasone propionate (FLONASE) 50 MCG/ACT nasal spray [place] 1 [place] into each nostril 2 times daily 1 [...] age to complete this [place] [id number] [employer]
--- NOTE | 2025-03-07 16:35 | PM.IMHP ---
H&P: HPI History of Present Illness Date/Time: 03/07/25 16:35 Chief Complaint: Balance Disturbance, Vision Disturbance Narrative: 84 y/o F with PMH of JUANITA, DM2, GERD and hypertension presents here with a transient balance and vision disturbance. The patient presents here from home via personal vehicle on 03/07 for further evaluation of disturbance in balance and vision. This morning around 10:00 a.m. she reports an episode of lightheadedness with associated balance disturbance and vision changes while had just stood to make a coffee. She described the vision disturbance as blurred, bilateral. Denies tunnel vision or darken of visions. She denied associated dizziness, headache, focal weakness, focal numbness, dysarthria,nausea, vomiting, or chest pain. She has a history of hypertension for which she took her blood pressure medications this morning and a history of diabetes, reported her blood sugar was in the 200s during the episode. No previously known history of CVA. Does report a few years ago she had a similar episode and had attributed the symptoms to her glucose, lasted around 45 minutes and resolved without her eating or drinking anything to improve her glucose. Initial VS at presentation: 97.9? F, HR 106, R 16, 236/86, and 99% on RA. ED workup showed: No leukocytosis, no anemia, normal coags, creatinine 1.14 and GFR 46 (1.04 and GFR 54 in 2022), glucose 199, initial troponin negative. Head CT showed an old lacunar infarct at the head of the left caudate nucleus, no acute intracranial process, and age related changes. CXR showed no acute cardiopulmonary findings. EKG showed sinus tachycardia with occasional supraventricular premature complexes, possible left atrial enlargement, probable inferior SD of indeterminate age. Review of Systems Review of Systems: All systems reviewed & are unremarkable except as noted in HPI and below PMFSH Past Medical History Medical History Iron deficiency anemia, unspecified Type 2 diabetes mellitus with diabetic polyneuropathy, without long-term current use of insulin Vitamin D deficiency Osteopenia Degenerative disc disease Benign essential hypertension with target blood pressure below 140/90 Gastro-esophageal reflux disease without esophagitis Surgical History Surgical History History of appendectomy H/O arthroscopy of shoulder H/O cataract extraction Family History Family History Sibling Diabetes mellitus Family history of lung cancer, Onset Age: 75 Family history of malignant neoplasm of bone Mother Diabetes mellitus Hypertension Family history of cardiovascular disease Father Family history of cardiovascular disease Social History Social History Smoking packs per day: 1 Smoking cigarettes per day: 20.0 Years smoked: 35 Smoking pack-years: 35.00 Smoking status: Former smoker Alcohol intake: former Substance use: never Substance use type: does not use Lack of Transportation: No Lack of Food: Never True Current Housing: I Have Housing Concerned About Future Housing: No Difficulty Paying Gas/Electric Bills: No Difficulty Paying for Meds: No Currently Unemployed: No Education: High School Diploma/GED Difficulty w/ Childcare or Family Care: No Living arrangements: alone Spiritual care concerns: No Meds Home Medications and Allergies Home Medications ?Medication ?Instructions ?Recorded ?Confirmed ?Type aspirin 81 mg tablet,delayed 81 mg PO DAILY 05/11/19 03/07/25 History release magnesium 250 mg tablet 250 mg PO DAILY 05/11/19 03/07/25 History blood sugar diagnostic #100 ea 12/28/19 03/07/25 Rx blood-glucose meter #1 ea 12/30/19 03/07/25 Rx omega-3 fatty acids-fish oil 684 1 cap PO DAILY 10/31/20 03/07/25 History mg-1,200 mg capsule,delayed release ferrous sulfate 325 mg (65 mg 325 mg PO DAILY 02/28/22 03/07/25 History iron) tablet glimepiride 4 mg tablet 4 mg PO QAM #90 tabs 10/24/22 03/07/25 Rx cholecalciferol (vitamin D3) 10 20 mcg (2 x 10 mcg (400 unit)) PO 06/18/23 03/07/25 Rx mcg (400 unit) capsule DAILY #60 caps telmisartan 80 mg tablet 80 mg PO DAILY #90 tabs 06/24/23 03/07/25 Rx pravastatin 40 mg tablet 40 mg PO DAILY #30 tabs 02/05/24 03/07/25 Rx hydrochlorothiazide 12.5 mg capsule 12.5 mg PO DAILY #30 caps 03/03/24 03/07/25 Rx metformin 1,000 mg tablet 1,000 mg PO BID #180 tabs 04/05/24 03/07/25 Rx Allergies Allergy/AdvReac Type Severity Reaction Status Date / Time cephalexin Allergy Intermediate itching Verified 03/07/25 17:03 ezetimibe Allergy Intermediate Muscle Pain Verified 03/07/25 17:03 rosuvastatin Allergy Intermediate Muscle Pain Verified 03/07/25 17:03 simvastatin (Vytorin) Allergy Intermediate Muscle Pain Verified 03/07/25 17:03 tramadol Allergy Intermediate Hives Verified 03/07/25 17:03 acetaminophen (From Vicodin) AdvReac Intermediate Hives Verified 03/07/25 17:03 clarithromycin AdvReac Intermediate Nausea Verified 03/07/25 17:03 codeine AdvReac Intermediate Nausea Verified 03/07/25 17:03 hydrocodone (From Vicodin) AdvReac Intermediate Hives Verified 03/07/25 17:03 oxycodone AdvReac Intermediate Nausea Verified 03/07/25 17:03 Sulfa (Sulfonamide AdvReac Intermediate Nausea Verified 03/07/25 17:03 Antibiotics) TRAMADOL HCL Allergy Intermediate Hives Uncoded 06/30/23 11:43 Vital Signs Vital Signs - 24 hr 03/07/25 12:00 03/07/25 12:00 03/07/25 12:14 Temperature 97.9 F Pulse Rate 106 H 106 H 99 Respiratory Rate 16 20 16 Blood Pressure 236/86 H 236/86 H 211/87 H Pulse Oximetry 99 100 99 Oxygen Delivery Room Air 03/07/25 12:15 03/07/25 12:16 03/07/25 12:23 Temperature Pulse Rate 91 109 H Respiratory Rate 20 19 Blood Pressure 211/87 H 236/84 H Pulse Oximetry 99 99 Oxygen Delivery 03/07/25 12:31 03/07/25 12:45 03/07/25 13:00 Temperature Pulse Rate 99 97 102 H Respiratory Rate 17 16 17 Blood Pressure 204/63 H 214/84 H 207/82 H Pulse Oximetry 98 100 99 Oxygen Delivery 03/07/25 13:15 03/07/25 13:16 03/07/25 13:30 Temperature Pulse Rate 90 99 Respiratory Rate 21 H 18 Blood Pressure 199/88 H 190/72 H Pulse Oximetry 97 98 Oxygen Delivery 03/07/25 13:45 03/07/25 13:46 03/07/25 14:00 Temperature Pulse Rate 96 100 101 H Respiratory Rate 19 15 18 Blood Pressure 191/61 H 168/73 H Pulse Oximetry 100 99 99 Oxygen Delivery 03/07/25 14:15 03/07/25 16:23 Temperature Pulse Rate 96 108 H Respiratory Rate 17 20 Blood Pressure 178/77 H 187/81 H Pulse Oximetry 100 100 Oxygen Delivery Exam Const: General: comfortable and no acute distress Other: , female, elderly, nontoxic appearance HENMT: Face/Nose/Sinus: Normal nares present Mouth: Yes moist mucous membranes Eyes: General: appearance normal, both eyes and all related structures Sclera: sclerae normal Pupils: Equal, round and reactive pupils present EOM: EOMs intact bilaterally Resp: Effort & Inspection: normal respiratory effort Auscultation: clear to auscultation bilaterally Cardio: Rate: regular rate Rhythm: regular rhythm Other: S1-S2 present without murmur, rub, ectopy GI: Other: Abdomen soft, nondistended, nontender. Normoactive bowel sounds in all quadrants. Skin: General skin exam: normal color and no rashes or lesions noted Wounds: no wounds Neuro: Speech: normal speech Motor exam (neuro): 5/5 motor strength present throughout Sensory Exam: normal sensation Other: A&O x4 Extrem: General: normal to inspection Psych: Mental Status: mental status grossly normal Affect: normal affect Other: Good insight and judgment, pleasant H&P: Results Labs Labs: Short CBC 03/07/25 Range/Units 12:13 WBC 6.9 (4.5-10.0) K/mm3 Hgb 12.5 (12.0-15.0) g/dL Hct 38.3 (37.0-47.0) % Plt Count 259 (150-375) k/mm3 BMP 03/07/25 12:13 Sodium 137 Potassium 4.1 Chloride 101 Carbon Dioxide 26 BUN 26 H Creatinine 1.14 H Glucose 199 H Calcium 9.5 Cardiac Enzymes 03/07/25 Range/Units 12:13 Troponin I < 0.012 (0.000-0.034) ng/mL Liver Function 03/07/25 Range/Units 12:13 Total Bilirubin 0.7 (0.2-1.3) mg/dL AST 24 (14-36) U/L ALT 17 (6-35) U/L Alkaline Phosphatase 94 (38-126) U/L Albumin 4.3 (3.5-5.1) g/dL Assessment and Plan Assessment and plan (1) Transient vision disturbance: Code(s): H53.9 - Unspecified visual disturbance Status: Acute Assessment and Plan: Transient balance disturbance and vision disturbance lasting for approximately 2 hours. Started at 10:00 a.m. on 02/04 and resolved around 12:00 p.m. on 02/04. Had similar episode a few years ago that resolved without intervention and lasted for 45 minutes. No prior knowledge of CVA, however seen on head CT today. - admission for observation and telemetry - not candidate for thrombolytics or thrombectomy as her symptoms were transient - CXR showed no acute cardiopulmonary findings - head CT: 1. 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 No acute intracranial process. 2. Age-related changes including moderate diffuse volume loss and moderate scattered white matter hypoattenuation consistent with chronic small vessel ischemic disease. - neurology consultation - brain MRI w/wo ordered - echo w/Bubble ordered - neuro checks Q4 - monitor daily labs, check lipid panel and A1C - continue home statin and daily aspirin - consider 30 day event monitoring at discharge if abnormalities noted on telemetry monitoring - DDx: TIA versus CVA verses hypertensive urgency versus dysrhythmia (2) Benign essential hypertension with target blood pressure below 140/90: Code(s): I10 - Essential (primary) hypertension Status: Acute Assessment and Plan: Arrived significantly hypertensive at 236/86 despite taking a.m. antihypertensives. Given hydralazine 10 mg IVP in ED. Now 187/81. - chronic. - hydralazine PRN for BP greater than 180/90 - continue home medications: HCTZ, telmisartan - monitor (3) Diabetes mellitus: Qualifiers: Diabetes mellitus complication status: without complication Diabetes mellitus senior living insulin use: without senior living use Diabetes mellitus type: type 2 Qualified Code(s): E11.9 - Type 2 diabetes mellitus without complications Code(s): E11.9 - Type 2 diabetes mellitus without complications Status: Chronic Assessment and Plan: - hypoglycemia protocol - POC blood glucose ACHS - home medication: Continue Glimepiride. Hold metformin in case of need for contrast. - correct regimen ordered - moderate dose TIDWM, based off BMI - A1C 6.3% in 2022, updating (4) Mixed hyperlipidemia due to type 2 diabetes mellitus: Code(s): E11.69 - Type 2 diabetes mellitus with other specified complication; E78.2 - Mixed hyperlipidemia Status: Acute Assessment and Plan: - continue home medication: Pravastatin - checking lipid panel Plan Diet: Diabetic GI Prophylaxis: N/a DVT Prophylaxis: SCDs IV fluids: None Lines/Tubes: Peripheral IV Code Status: Full code Quality VTE Prophylaxis VTE prophylaxis: mechanical ordered Hospitalist [facility] Advance Care Plan I have confirmed that the patient's Advanced Care Plan is present, code status is documented, or surrogate decision maker is listed in patient medical record.: Yes Medication Reconciliation I have utilized all available resources to obtain, update and review the patients current medications (includes all prescriptions, OTC, herbals, cannabis, and nutritional supplements).: Yes
--- NOTE | 2025-03-07 18:14 | ADMGEN ---
This patient, Mere Woods, was admitted to [facility] S[facility] Room 328-01. Patient/family oriented to hospital policies and general routines including ID bracelet, bed and alarms, visiting hours, pain management, procedures, bathroom and other care routines, personal items, smoking policy, room service/diet, and visiting hours. Information on how to activate the Rapid Response Team has been discussed. Patient/Family are encouraged to report perceived risks to care and to ask questions if they do not understand what they are told or what they should do. received report from shirin.
[2025-03-07] MEDS: INSULIN ASPART (*BKC) 100 UNITS/ML SUB-Q (18:20)
[2025-03-08] VITALS (8 sets, daily range): BP systolic 108–152; BP diastolic 60–76; PULSE 80–96; RESP 12–20; TEMP 36.1–36.8; O2SAT 97–99
[2025-03-08 07:12] LABS: Cholesterol 156 mg/dL (0-200); HDL Direct 39 mg/dL; Triglycerides 124 mg/dL (<150)
[2025-03-08] MEDS: ASPIRIN 81 MG ENTERIC TABLET PO (09:08)
[2025-03-08] MEDS: FERROUS SULFATE 325 MG TABLET PO (09:08)
[2025-03-08] MEDS: GLIMEPIRIDE 2 MG TABLET 4 MG PO (09:08)
[2025-03-08] MEDS: MAGNESIUM OXIDE 200 MG TABLET PO (09:08)
[2025-03-08] MEDS: CHOLECALCIFEROL (VITAMIN D3) 10 MCG (400 UNITS) TABLET 20 MCG PO (09:08)
[2025-03-08] MEDS: TELMISARTAN 40 MG TABLET 80 MG PO (09:09)
[2025-03-08] MEDS: OMEGA 3 POLYUNSAT FATTY ACIDS 1 GM CAP PO (09:09)
[2025-03-08] MEDS: PRAVASTATIN SODIUM 20 MG TABLET 40 MG PO (09:09)
--- NOTE | 2025-03-08 10:04 | P.PNIM_ITS ---
Progress Note: A&P Assessment and Plan (1) Transient vision disturbance: Code(s): H53.9 - Unspecified visual disturbance Status: Acute Assessment and Plan: Transient balance disturbance and vision disturbance lasting for approximately 2 hours. Started at 10:00 a.m. on 02/04 and resolved around 12:00 p.m. on 02/04. Had similar episode a few years ago that resolved without intervention and lasted for 45 minutes. No prior knowledge of CVA, however seen on head CT today. Admitted for observation and telemetry DDx: TIA versus CVA verses hypertensive urgency versus dysrhythmia IMAGING 03/[address] showed: 1. 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 No acute intracranial process. 2. Age-related changes including moderate diffuse volume loss and moderate scattered white matter hypoattenuation consistent with chronic small vessel ischemic disease. 03/08 Brain MRI showed 1. 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 2. Moderate nonspecific cerebral white matter disease, which likely represents chronic small vessel ischemic disease. - not candidate for thrombolytics or thrombectomy as her symptoms were transient - CXR showed no acute cardiopulmonary findings - neurology consultation - echo w/Bubble ordered - neuro checks Q4 - monitor daily labs, check lipid panel and A1C - continue home statin and daily aspirin - consider 30 day event monitoring at discharge if abnormalities noted on telemetry monitoring (2) Benign essential hypertension with target blood pressure below 140/90: Code(s): I10 - Essential (primary) hypertension Status: Acute Assessment and Plan: Arrived significantly hypertensive at 236/86 despite taking a.m. antihypertensives. Given hydralazine 10 mg IVP in ED. Now 187/81. - chronic. - hydralazine PRN for BP greater than 180/90 - continue home medications: HCTZ, telmisartan - monitor (3) Diabetes mellitus: Qualifiers: Diabetes mellitus complication status: without complication Diabetes mellitus termite helper insulin use: without termite helper use Diabetes mellitus type: type 2 Qualified Code(s): E11.9 - Type 2 diabetes mellitus without complications Code(s): E11.9 - Type 2 diabetes mellitus without complications Status: Chronic Assessment and Plan: hypoglycemia protocol - POC blood glucose ACHS - home medication: Continue Glimepiride. Hold metformin in case of need for contrast. - correct regimen ordered - moderate dose TIDWM, based off BMI - A1C 6.3% in 2022, updating (4) Mixed hyperlipidemia due to type 2 diabetes mellitus: Code(s): E11.69 - Type 2 diabetes mellitus with other specified complication; E78.2 - Mixed hyperlipidemia Status: Acute Assessment and Plan: - continue home medication: Pravastatin - checking lipid panel Plan Diet: Diabetic GI Prophylaxis: N/a DVT Prophylaxis: SCDs IV fluids: None Lines/Tubes: Peripheral IV Code Status: Full code Time Spent With Patient Time: 57 minutes Subjective Date/time seen: 03/08/25 10:04 Interval history: Overnight events Blood pressures improving, 152/76. Last IV hydralazine given yesterday afternoon. Since then BP controlled MRI brain today showed old cerebellar infarcts Pending Echo Neurology consulted Reason for hospitalization 84 y/o F with PMH of JUANITA, DM2, GERD and hypertension presents here with a transient balance and vision disturbance. Blood pressures very elevated in the ED, 236/86. Reported taking medications ASA/Statin. Review of Systems Review of Systems: All systems reviewed & are unremarkable except as noted in HPI and below Exam Narrative: General - Awake and alert. No acute distress Eyes - PERRLA, EOM intact ENT - No thrush, No erythema Neck - No noticeable or palpable swelling Lymph Nodes - No lymphadenopathy Cardiovascular - RRR no + systolic murmur right sternal border no JVD Lungs: Clear to auscultation, No wheezing, use of accessory muscles, no crackles Skin - Skin warm and dry, no wounds or rashes Abdomen - Normal bowel sounds, abdomen soft and nontender Extremities - No edema, cyanosis or clubbing Musculoskeletal - 5/5 strength, normal range of motion, no swollen or erythematous joints. Neurological ? Alert and oriented x 3, CN 2-12 grossly intact. Psych: Normal mood and affect Objective Data Vital Signs Vital Signs: Vital Signs - 24 hr 03/07/25 12:00 03/07/25 12:00 03/07/25 12:14 Temperature 97.9 F Pulse Rate 106 H 106 H 99 Respiratory Rate 16 20 16 Blood Pressure 236/86 H 236/86 H 211/87 H Pulse Oximetry 99 100 99 Oxygen Delivery Room Air 03/07/25 12:15 03/07/25 12:16 03/07/25 12:23 Temperature Pulse Rate 91 109 H Respiratory Rate 20 19 Blood Pressure 211/87 H 236/84 H Pulse Oximetry 99 99 Oxygen Delivery 03/07/25 12:31 03/07/25 12:45 03/07/25 13:00 Temperature Pulse Rate 99 97 102 H Respiratory Rate 17 16 17 Blood Pressure 204/63 H 214/84 H 207/82 H Pulse Oximetry 98 100 99 Oxygen Delivery 03/07/25 13:15 03/07/25 13:16 03/07/25 13:30 Temperature Pulse Rate 90 99 Respiratory Rate 21 H 18 Blood Pressure 199/88 H 190/72 H Pulse Oximetry 97 98 Oxygen Delivery 03/07/25 13:45 03/07/25 13:46 03/07/25 14:00 Temperature Pulse Rate 96 100 101 H Respiratory Rate 19 15 18 Blood Pressure 191/61 H 168/73 H Pulse Oximetry 100 99 99 Oxygen Delivery 03/07/25 14:15 03/07/25 16:23 03/07/25 18:12 Temperature Pulse Rate 96 108 H Respiratory Rate 17 20 Blood Pressure 178/77 H 187/81 H Pulse Oximetry 100 100 Oxygen Delivery Room Air 03/07/25 20:00 03/07/25 20:00 03/07/25 22:00 Temperature 97.7 F Pulse Rate 108 H 109 H 96 Respiratory Rate 20 20 Blood Pressure 176/64 H Pulse Oximetry 100 99 Oxygen Delivery Room Air 03/08/25 00:00 03/08/25 04:00 03/08/25 05:32 Temperature 98.2 F Pulse Rate 96 80 92 Respiratory Rate 20 Blood Pressure 152/76 H Pulse Oximetry 98 Oxygen Delivery Intake/Output Intake/Output: Intake & Output 03/05/25 03/06/25 03/07/25 03/08/25 23:59 23:59 23:59 23:59 Intake Total 240 730 Balance 240 730 Meds/Results Medications: Active Medications Generic Name Dose Route Start Last Admin Trade Name Freq PRN Reason Stop Dose Admin Aspirin 81 mg 03/08/25 09:00 03/08/25 09:08 Aspirin 81 Mg Enteric Tablet PO 81 mg DAILY SELENA Administration Dextrose 12.5 gm 03/07/25 17:00 Dextrose 50% 25 Gm/50 Ml Syringe IV PUSH PRN PRN Hypoglycemia Protocol Ferrous Sulfate 325 mg 03/08/25 09:00 03/08/25 09:08 Ferrous Sulfate 325 Mg Tablet PO 325 mg DAILY SELENA Administration Fish Oil 1 gm 03/08/25 09:00 03/08/25 09:09 Mason 3 Polyunsat Fatty Acids 1 Gm Cap PO 1 gm QAM SELENA Administration Glimepiride 4 mg 03/08/25 08:00 03/08/25 09:08 Glimepiride 2 Mg Tablet PO 4 mg DAILY@0800 SELENA Administration Glucagon 1 mg 03/07/25 17:00 Glucagon For Inj 1 Mg Vial IM PRN PRN Hypoglycemia Protocol Glucose 15 gm 03/07/25 17:00 Glucose Oral Gel 15 Gm Of Glucse In 37.5 Gm Tube PO PRN PRN Hypoglycemia Protocol Hydralazine HCl 10 mg 03/07/25 17:00 Hydralazine Hcl 20 Mg/Ml Vial IV PUSH Q8H PRN Blood Pressure - High, >180/90 Hydrochlorothiazide 12.5 mg 03/08/25 09:00 03/08/25 09:08 Hydrochlorothiazide 12.5 Mg Capsule PO 12.5 mg DAILY SELENA Administration Dextrose 1,000 mls @ 100 mls/hr 03/07/25 17:00 Dextrose 5% 1,000 Ml IVPB PRN PRN Hypoglycemia Protocol Insulin Aspart 3 - 6 units 03/07/25 17:00 03/08/25 07:52 Insulin Aspart (*Bkc) 100 Units/Ml SUB-Q Not Given TIDWM SELENA Protocol Magnesium Oxide 200 mg 03/08/25 09:00 03/08/25 09:08 Magnesium Oxide 200 Mg Tablet PO 200 mg DAILY SELENA Administration Perflutren Lipid Microsphere 0 ml 03/07/25 16:58 Perflutren Lipid Microspheres 1.5 Ml Vial Diluted To 10 Ml Total Volume IV PUSH 03/10/25 16:59 ONCE PRN adequate visualization Protocol Pravastatin Sodium 40 mg 03/08/25 09:00 03/08/25 09:09 Pravastatin Sodium 20 Mg Tablet PO 40 mg DAILY SELENA Administration Telmisartan 80 mg 03/08/25 09:00 03/08/25 09:09 Telmisartan 40 Mg Tablet PO 80 mg DAILY SELENA Administration Vitamin D 20 mcg 03/08/25 09:00 03/08/25 09:08 Cholecalciferol (Vitamin D3) 10 Mcg (400 Units) Tablet PO 20 mcg DAILY SELENA Administration Radiology Results: ITS Impressions Head CT 03/07/25 11:57 IMPRESSION: 1. 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 No acute intracranial process. 2. Age-related changes including moderate diffuse volume loss and moderate scattered white matter hypoattenuation consistent with chronic small vessel ischemic disease. Chest X-Ray 03/07/25 12:24 IMPRESSION: 1. No acute cardiopulmonary findings given portable technique. Labs Labs: Laboratory Results - last 24 hr 03/07/25 03/07/25 03/07/25 11:51 12:13 18:17 WBC 6.9 RBC 4.53 Hgb 12.5 Hct 38.3 MCV 84.5 MCH 27.6 MCHC 32.6 RDW 13.3 Plt Count 259 MPV 9.2 Immature Gran % (Auto) 0.3 Neut % (Auto) 59.9 Lymph % (Auto) 29.0 [place] % (Auto) 6.2 Eos % (Auto) 3.9 Baso % (Auto) 0.7 Lymph # (Auto) 2.01 [place] # (Auto) 0.4 Eos # (Auto) 0.3 Baso # (Auto) 0.1 Abs Immat Gran (auto) 0.02 Absolute Neuts (auto) 4.1 Absolute Nucleated RBC 0.000 Nucleated RBC % 0.0 PT 13.8 INR 1.0 APTT 27.4 Sodium 137 Potassium 4.1 Chloride 101 Carbon Dioxide 26 Anion Gap 10 BUN 26 H Creatinine 1.14 H Estim Creat Clear Calc 29 Estimated GFR 46 L Glucose 199 H POC Capillary Glucose 201 H 208 H Calcium 9.5 Total Bilirubin 0.7 AST 24 ALT 17 Alkaline Phosphatase 94 Troponin I < 0.012 Total Protein 8.1 Albumin 4.3 Triglycerides Cholesterol LDL Cholesterol Direct HDL Direct 03/07/25 03/08/25 03/08/25 20:39 06:26 06:39 WBC RBC Hgb Hct MCV MCH MCHC RDW Plt Count MPV Immature Gran % (Auto) Neut % (Auto) Lymph % (Auto) [place] % (Auto) Eos % (Auto) Baso % (Auto) Lymph # (Auto) [place] # (Auto) Eos # (Auto) Baso # (Auto) Abs Immat Gran (auto) Absolute Neuts (auto) Absolute Nucleated RBC Nucleated RBC % PT INR APTT Sodium Potassium Chloride Carbon Dioxide Anion Gap BUN Creatinine Estim Creat Clear Calc Estimated GFR Glucose POC Capillary Glucose 239 H 115 H Calcium Total Bilirubin AST ALT Alkaline Phosphatase Troponin I Total Protein Albumin Triglycerides 124 Cholesterol 156 LDL Cholesterol Direct 71 HDL Direct 39 03/08/25 07:47 WBC RBC Hgb Hct MCV MCH MCHC RDW Plt Count MPV Immature Gran % (Auto) Neut % (Auto) Lymph % (Auto) [place] % (Auto) Eos % (Auto) Baso % (Auto) Lymph # (Auto) [place] # (Auto) Eos # (Auto) Baso # (Auto) Abs Immat Gran (auto) Absolute Neuts (auto) Absolute Nucleated RBC Nucleated RBC % PT INR APTT Sodium Potassium Chloride Carbon Dioxide Anion Gap BUN Creatinine Estim Creat Clear Calc Estimated GFR Glucose POC Capillary Glucose 133 H Calcium Total Bilirubin AST ALT Alkaline Phosphatase Troponin I Total Protein Albumin Triglycerides Cholesterol LDL Cholesterol Direct HDL Direct Quality VTE Prophylaxis VTE prophylaxis: mechanical ordered Hospitalist MIPS Advance Care Plan I have confirmed that the patient's Advanced Care Plan is present, code status is documented, or surrogate decision maker is listed in patient medical record.: Yes Medication Reconciliation I have utilized all available resources to obtain, update and review the patients current medications (includes all prescriptions, OTC, herbals, cannabis, and nutritional supplements).: Yes
[2025-03-08 13:37] LABS: Hemoglobin A1C 7.1 % (<5.7)
--- NOTE | 2025-03-08 16:59 | ECHO_ITS ---
Patient Info Name: Mere Woods Age: 84 years : 1940 Gender: Female Ht: 64 in Wt: 153 lbs BSA: 1.79 m2 HR: 87 bpm BP: 152 / 76 mmHg Heart Rhythm: Sinus Rhythm Technical Quality: Fair Exam Date: 03/08/2025 1:50 PM Patient Status: I Admit Date: 03/08/2025 Exam Type: CA echo doppler w bubble study Complete two-dimensional, color flow and Doppler transthoracic echocardiogram is performed with agitated saline. Staff Referring Physician: José Miguel Jiménez MD Configuration Management Specialist: Joanne Deleon Attending Provider: Gita Chanel Contrast/Agitated Saline Contrast/Ag. Saline: Agitated Saline Amount: 12.00 ml Existing IV Access: Yes IV Access Condition: patent with no signs of infiltration Summary 1. Hyperdynamic left ventricular systolic contractility. 2. Mild mitral annular calcification with small amount of MR. 3. Small amount of aortic regurgitation. 4. Sinus rhythm. 5. Agitated saline contrast injection demonstrates no intracardiac shunt. Left Ventricle Left ventricular chamber dimension is normal. Left ventricular systolic function is hyperdynamic, estimated at >70. Right Ventricle Right ventricular chamber dimension is normal. Left Atria Left atrial chamber dimension is mildly enlarged. Right Atria Right atrial chamber dimension is not well visualized. Aortic Valve There is mild aortic valve sclerosis. There is mild aortic valve regurgitation. Pulmonic Valve The pulmonic valve is not well visualized. Mitral Valve The mitral valve has normal leaflets. There is mild mitral valve regurgitation. Tricuspid Valve The tricuspid valve leaflets are not well visualized. Pericardium/Pleural The pericardium appears normal. Aorta The aortic root size at the sinus of Valsalva is normal. Left Ventricular Outflow Tract Name Value Normal LVOT 2D LVOT Diameter 1.8 cm LVOT Doppler LVOT Peak Velocity 113 cm/s LVOT Peak Gradient 5 mmHg LVOT Mean Gradient 4 mmHg LVOT VTI 25 cm LVOT VTI/AV VTI Ratio 0.7 LVOT Stroke Volume 62 ml LVOT CO 13.8 l/min LVOT CI 7.9 l/min/m2 Pulmonic Valve Name Value Normal PV Doppler PV Peak Velocity 109 cm/s PV Peak Gradient 5 mmHg Mitral Valve Name Value Normal MV Doppler MV Peak Gradient 20 mmHg MV Mean Gradient 7 mmHg MV Area (Cont Eq VTI) 1.7 cm2 MV Diastolic Function MV E Peak Velocity 100 cm/s MV A Peak Velocity 182 cm/s MV E/A 0.6 MV Decel Time (PW) 157 ms MV Annular TDI MV E/e' (Septal) 23.4 MV E/e' (Lateral) 21.2 MV E/e' (Average) 22.3 Tricuspid Valve Name Value Normal TV Annular TDI TV Lateral Kate s' Velocity 16.8 cm/s >=9.5 Aorta Name Value Normal Ascending Aorta Ao Root Diameter (MM) 3.1 cm Ao Root Diam Index (MM) 1.7 cm/m2 Aortic Valve Name Value Normal AV Doppler AV Peak Velocity 181 cm/s AV Peak Gradient 13 mmHg AV Mean Gradient 9 mmHg AV VTI 34 cm AV Area (Cont Eq VTI) 1.8 cm2 >=3.0 AV Area (Cont Eq Jerry) 1.6 cm2 AV DI (Jerry) 0.62 AV Regurgitation 2D LVOT Area 2.5 cm2 Ventricles Name Value Normal LV Dimensions 2D/MM IVS Diastolic Thickness (2D) 1.6 cm 0.6-1.0 LVID Diastole (2D) 3.8 cm 3.8-5.2 LVIW Diastolic Thickness (2D) 1.1 cm 0.6-0.9 LVID Systole (2D) 2.6 cm 2.2-3.5 LVOT Diameter 1.8 cm LV Mass (2D Cubed) 184.60 g 67.00-162.00 LV Mass Index (2D Cubed) 103 g/m2 43-95 Relative Wall Thickness (2D) 0.59 <=0.42 LV Fractional Shortening/Ejection Fraction 2D/MM LV Fractional Shortening (2D) 31 % 27-45 LV EF (2D Teichholz) 60 % LV Diastolic Volume (4C MOD) 72 ml LV EF (4C MOD) 71 % LV Diastolic Volume (2C MOD) 52 ml LV EF (2C MOD) 62 % LV Diastolic Volume (BP MOD) 62 ml 46-106 LV Diastolic Volume Index (BP MOD) 35 ml/m2 29-61 LV Systolic Volume (BP MOD) 20 ml 14-42 LV Systolic Volume Index (BP MOD) 11 ml/m2 8-24 LV EF (BP MOD) 68 % 54-74 LV Diastolic Length (4C) 7.6 cm LV Systolic Length (4C) 6.3 cm LV Stroke Volume (4C MOD) 51 ml RV Dimensions 2D/MM RVID Diastole (2D) 3.4 cm 2.1-3.5 [place] Name Value Normal LA Dimensions LA Volume (4C A-L) 43 ml LA Volume (BP A-L) 49 ml RA Dimensions RA Systolic Major [place] Length (4C) 4.8 cm 2.2-2.8 RA Area (4C) 12.6 cm2 <=18.0 Report Signatures Amended by Alban Rios MD on 03/31/2025 12:56 PM Amended by Magdalena Hoffman on 03/31/2025 12:48 PM
[2025-03-09 06:00] VITALS: BP 131/62; PULSE 72; RESP 18; TEMP 36.7; O2SAT 97
[2025-03-09] MEDS: GLIMEPIRIDE 2 MG TABLET 4 MG PO (10:02)
[2025-03-09] MEDS: TELMISARTAN 40 MG TABLET 80 MG PO (10:02)
[2025-03-09] MEDS: MAGNESIUM OXIDE 200 MG TABLET PO (10:02)
[2025-03-09] MEDS: OMEGA 3 POLYUNSAT FATTY ACIDS 1 GM CAP PO (10:02)
[2025-03-09] MEDS: CHOLECALCIFEROL (VITAMIN D3) 10 MCG (400 UNITS) TABLET 20 MCG PO (10:02)
[2025-03-09] MEDS: FERROUS SULFATE 325 MG TABLET PO (10:02)
[2025-03-09] MEDS: ASPIRIN 81 MG ENTERIC TABLET PO (10:02)
[2025-03-09] MEDS: PRAVASTATIN SODIUM 20 MG TABLET 40 MG PO (10:02)
--- NOTE | 2025-03-09 10:16 | P.PNIM_ITS ---
Progress Note: A&P Assessment and Plan (1) Transient vision disturbance: Code(s): H53.9 - Unspecified visual disturbance Status: Acute Assessment and Plan: Hypertensive emergency likely etiology Transient balance disturbance and vision disturbance lasting for approximately 2 hours. Started at 10:00 a.m. on 02/04 and resolved around 12:00 p.m. on 02/04. Had similar episode a few years ago that resolved without intervention and lasted for 45 minutes. No prior knowledge of CVA, however seen on head CT today. Admitted for observation and telemetry DDx: TIA versus CVA verses hypertensive urgency versus dysrhythmia IMAGING 03/[address] showed: 1. 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 No acute intracranial process. 2. Age-related changes including moderate diffuse volume loss and moderate scattered white matter hypoattenuation consistent with chronic small vessel ischemic disease. 03/08 Brain MRI showed 1. 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 2. Moderate nonspecific cerebral white matter disease, which likely represents chronic small vessel ischemic disease. - not candidate for thrombolytics or thrombectomy as her symptoms were transient - CXR showed no acute cardiopulmonary findings - neurology consultation - echo w/Bubble as noted - neuro checks - monitor daily labs, check lipid panel and A1C - continue home statin and daily aspirin - 30 day event monitoring per PCP (2) Benign essential hypertension with target blood pressure below 140/90: Code(s): I10 - Essential (primary) hypertension Status: Acute Assessment and Plan: Arrived significantly hypertensive at 236/86 despite taking a.m. antihypertensives. Given hydralazine 10 mg IVP in ED. Now 187/81. - chronic. - hydralazine PRN for BP greater than 180/90 - continue home medications: HCTZ, telmisartan - monitor (3) Diabetes mellitus: Qualifiers: Diabetes mellitus complication status: without complication Diabetes mellitus nursing home insulin use: without terminal gauger supervisor use Diabetes mellitus type: type 2 Qualified Code(s): E11.9 - Type 2 diabetes mellitus without complications Code(s): E11.9 - Type 2 diabetes mellitus without complications Status: Chronic Assessment and Plan: hypoglycemia protocol - POC blood glucose ACHS - home medication: Continue Glimepiride. Hold metformin in case of need for contrast. - correct regimen ordered - moderate dose TIDWM, based off BMI - A1C 6.3% in 2022, updating (4) Mixed hyperlipidemia due to type 2 diabetes mellitus: Code(s): E11.69 - Type 2 diabetes mellitus with other specified complication; E78.2 - Mixed hyperlipidemia Status: Acute Assessment and Plan: - continue home medication: Pravastatin - checking lipid panel Plan Diet: Diabetic GI Prophylaxis: N/a DVT Prophylaxis: SCDs IV fluids: None Lines/Tubes: Peripheral IV Code Status: Full code Subjective Date/time seen: 03/09/25 10:16 Interval history: Overnight events Blood pressures improved, 108/60 last night. 131/62 this morning. No vision changes since admission Neurology consulted 03/08 TTE showed mild aortic sclerosis and aortic regurgitation. mild mitral regurg Reason for hospitalization 84 y/o F with PMH of JUANITA, DM2, GERD and hypertension presents here with a transient balance and vision disturbance. Blood pressures very elevated in the ED, 236/86. Reported taking medications ASA/Statin. Review of Systems Review of Systems: All systems reviewed & are unremarkable except as noted in HPI and below Exam Narrative: General - Awake and alert. No acute distress Eyes - PERRLA, EOM intact ENT - No thrush, No erythema Neck - No noticeable or palpable swelling Lymph Nodes - No lymphadenopathy Cardiovascular - RRR no + systolic murmur right sternal border no JVD Lungs: Clear to auscultation, No wheezing, use of accessory muscles, no crackles Skin - Skin warm and dry, no wounds or rashes Abdomen - Normal bowel sounds, abdomen soft and nontender Extremities - No edema, cyanosis or clubbing Musculoskeletal - 5/5 strength, normal range of motion, no swollen or erythematous joints. Neurological ? Alert and oriented x 3, CN 2-12 grossly intact. Psych: Normal mood and affect Objective Data Vital Signs Vital Signs: Vital Signs - 24 hr 03/08/25 12:00 03/08/25 14:42 03/08/25 20:00 Temperature 97 F L Pulse Rate 84 82 82 Respiratory Rate 12 12 Blood Pressure 133/67 Pulse Oximetry 99 99 Oxygen Delivery Room Air 03/08/25 21:14 03/09/25 06:00 Temperature 97.8 F 98.1 F Pulse Rate 94 72 Respiratory Rate 20 18 Blood Pressure 108/60 131/62 Pulse Oximetry 97 97 Oxygen Delivery Intake/Output Intake/Output: Intake & Output 03/06/25 03/07/25 03/08/2524/25 23:59 23:59 23:59 23:59 Intake Total 240 1710 290 Balance 240 1710 290 Meds/Results Medications: Active Medications Generic Name Dose Route Start Last Admin Trade Name Freq PRN Reason Stop Dose Admin Aspirin 81 mg 03/08/25 09:00 03/09/25 10:02 Aspirin 81 Mg Enteric Tablet PO 81 mg DAILY SELENA Administration Dextrose 12.5 gm 03/07/25 17:00 Dextrose 50% 25 Gm/50 Ml Syringe IV PUSH PRN PRN Hypoglycemia Protocol Ferrous Sulfate 325 mg 03/08/25 09:00 03/09/25 10:02 Ferrous Sulfate 325 Mg Tablet PO 325 mg DAILY SELENA Administration Fish Oil 1 gm 03/08/25 09:00 03/09/25 10:02 [place] 3 Polyunsat Fatty Acids 1 Gm Cap PO 1 gm QAM SELENA Administration Glimepiride 4 mg 03/08/25 08:00 03/09/25 10:02 Glimepiride 2 Mg Tablet PO 4 mg DAILY@0800 SELENA Administration Glucagon 1 mg 03/07/25 17:00 Glucagon For Inj 1 Mg Vial IM PRN PRN Hypoglycemia Protocol Glucose 15 gm 03/07/25 17:00 Glucose Oral Gel 15 Gm Of Glucse In 37.5 Gm Tube PO PRN PRN Hypoglycemia Protocol Hydralazine HCl 10 mg 03/07/25 17:00 Hydralazine Hcl 20 Mg/Ml Vial IV PUSH Q8H PRN Blood Pressure - High, >180/90 Hydrochlorothiazide 12.5 mg 03/08/25 09:00 03/09/25 10:02 Hydrochlorothiazide 12.5 Mg Capsule PO 12.5 mg DAILY SELENA Administration Dextrose 1,000 mls @ 100 mls/hr 03/07/25 17:00 Dextrose 5% 1,000 Ml IVPB PRN PRN Hypoglycemia Protocol Insulin Aspart 3 - 6 units 03/07/25 17:00 03/09/25 10:03 Insulin Aspart (*Bkc) 100 Units/Ml SUB-Q Not Given TIDWM SELENA Protocol Magnesium Oxide 200 mg 03/08/25 09:00 03/09/25 10:02 Magnesium Oxide 200 Mg Tablet PO 200 mg DAILY SELENA Administration Perflutren Lipid Microsphere 0 ml 03/07/25 16:58 Perflutren Lipid Microspheres 1.5 Ml Vial Diluted To 10 Ml Total Volume IV PUSH 03/10/25 16:59 ONCE PRN adequate visualization Protocol Pravastatin Sodium 40 mg 03/08/25 09:00 03/09/25 10:02 Pravastatin Sodium 20 Mg Tablet PO 40 mg DAILY SELENA Administration Telmisartan 80 mg 03/08/25 09:00 03/09/25 10:02 Telmisartan 40 Mg Tablet PO 80 mg DAILY SELENA Administration Vitamin D 20 mcg 03/08/25 09:00 03/09/25 10:02 Cholecalciferol (Vitamin D3) 10 Mcg (400 Units) Tablet PO 20 mcg DAILY SELENA Administration Radiology Results: ITS Impressions Head CT 03/07/25 11:57 IMPRESSION: 1. 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 No acute intracranial process. 2. Age-related changes including moderate diffuse volume loss and moderate scattered white matter hypoattenuation consistent with chronic small vessel ischemic disease. Chest X-Ray 03/07/25 12:24 IMPRESSION: 1. No acute cardiopulmonary findings given portable technique. Brain MRI 03/08/25 11:24 IMPRESSION: 1. 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 2. Moderate nonspecific cerebral white matter disease, which likely represents chronic small vessel ischemic disease. Labs Labs: Laboratory Results - last 24 hr 03/08/25 03/08/25 03/08/25 06:26 12:09 16:37 POC Capillary Glucose 170 H 197 H Hemoglobin A1c 7.1 H 03/08/25 03/09/25 19:45 07:52 POC Capillary Glucose 212 H 129 H Hemoglobin A1c Quality VTE Prophylaxis VTE prophylaxis: mechanical ordered Hospitalist [facility] Advance Care Plan I have confirmed that the patient's Advanced Care Plan is present, code status is documented, or surrogate decision maker is listed in patient medical record.: Yes Medication Reconciliation I have utilized all available resources to obtain, update and review the patients current medications (includes all prescriptions, OTC, herbals, can nabis, and nutritional supplements).: Yes
[2025-03-09 10:40] LABS: Hematocrit 39.0 % (37.0-47.0); Hemoglobin 12.6 g/dL (12.0-15.0); Immature Granulocyte Percent A 0.1 % (0-0.5); Lymphocytes Absolute Auto 2.26 K/mm3 (0.9-3.2); Mean Corpuscular HGB Conc 32.3 g/dl (32-36); Mean Corpuscular Hemoglobin 27.8 pg (26-34); Mean Corpuscular Volume 86.1 fl (80-100); Nucleated Red Blood Cells Absolute Auto 0.000 K/mm3 (0.0-0.012); Nucleated Red Blood Cells Perc 0.0 % (0.0-0.2); Platelet Count Result 271 k/mm3 (150-375); Red Blood Count 4.53 M/mm3 (4.2-5.4); White Blood Count 9.4 K/mm3 (4.5-10.0)
[2025-03-09 11:01] LABS: Anion Gap 7 mmol/L (4-12); Blood Urea Nitrogen 26 mg/dL (7-17); Calcium 9.3 mg/dL (8.4-10.2); Carbon Dioxide 29 mmol/L (22-30); Chloride 99 mmol/L (98-107); Estimated CRCL calculation 32 ml/min; Estimated Glomerular Filt Rate 52; Glucose 217 mg/dL (65-110); Magnesium 1.8 mg/dL (1.6-2.3); Potassium 4.8 mmol/L (3.4-5.0); Sodium 135 mmol/L (137-145)
--- NOTE | 2025-03-09 11:32 | WPDNEURCNPN ---
Assessment and Plan Assessment and plan (1) Diabetes mellitus: Qualifiers: Diabetes mellitus type: type 2 Diabetes mellitus detention insulin use: without terminal carman use Diabetes mellitus complication status: without complication Qualified Code(s): E11.9 - Type 2 diabetes mellitus without complications Code(s): E11.9 - Type 2 diabetes mellitus without complications Status: Chronic (2) Diabetic neuropathy: Code(s): E11.40 - Type 2 diabetes mellitus with diabetic neuropathy, unspecified Status: Acute Plan Diabetic autonomic neuropathy and neuropathy resulting the clinical symptomatology of dizziness additional CT scan was documented to have the old lacunar infarct at the head of the left caudate nucleus but the MRI of the brain documented old infarct in left cerebellum which could be additional aggravating factor with balance difficulty she needs to be guided accordingly as the balance will be more difficult for her to hand particularly in the evening all those guidelines needs to be given Consult date: 03/09/25 HPI: Mere Woods is a 84 year old female Admitted to the hospital through the emergency room for the complaints of imbalance, lightheadedness and impending sensation of passing out also visual blurring, by the time she came to the emergency room symptomatology had resolved, she has been taking aspirin 81mg daily in addition to the supplements. She is reportedly allergic to multiple medications as outlined. She carries the diagnosis of 1. Type 2 diabetes mellitus with diabetic neuropathy 2. Iron deficiency anemia 3. GERD 4. Hypertension 5. Cataract extraction and 6. Status post arthroscopy of the shoulder. She is former smoker and currently alcohol intak Initial exam in the ER non focal, But blood pressure 178/77. CT of the head in the emergency room documented old lacunar infarct at the head of the left caudate nucleus, subsequently MRI on the floor documented small old infarct in the left cerebellum with moderate nonspecific cerebral white matter disease. Echocardiogram on the floor documented aortic regurgitation of his small amount with mild annular calcification of the mitral valve. Review of Systems Review of Systems: All systems reviewed & are unremarkable except as noted in HPI and below PMFSH Past Medical History Medical History Iron deficiency anemia, unspecified Type 2 diabetes mellitus with diabetic polyneuropathy, without long-term current use of insulin Vitamin D deficiency Osteopenia Degenerative disc disease Benign essential hypertension with target blood pressure below 140/90 Gastro-esophageal reflux disease without esophagitis Surgical History Surgical History History of appendectomy H/O arthroscopy of shoulder H/O cataract extraction Family History Family History Sibling Diabetes mellitus Family history of lung cancer, Onset Age: 75 Family history of malignant neoplasm of bone Mother Diabetes mellitus Hypertension Family history of cardiovascular disease Father Family history of cardiovascular disease Social History Social History Smoking packs per day: 1 Smoking cigarettes per day: 20.0 Years smoked: 35 Smoking pack-years: 35.00 Smoking status: Former smoker Alcohol intake: former Substance use: never Substance use type: does not use Lack of Transportation: No Lack of Food: Never True Current Housing: I Have Housing Concerned About Future Housing: No Difficulty Paying Gas/Electric Bills: No Difficulty Paying for Meds: No Currently Unemployed: No Education: High School Diploma/GED Difficulty w/ Childcare or Family Care: No Living arrangements: alone Spiritual care concerns: No Meds Home Medications and Allergies Home Medications ?Medication ?Instructions ?Recorded ?Confirmed ?Type aspirin 81 mg tablet,delayed 81 mg PO DAILY 05/11/19 03/07/25 History release magnesium 250 mg tablet 250 mg PO DAILY 05/11/19 03/07/25 History blood sugar diagnostic #100 ea 12/28/19 03/07/25 Rx blood-glucose meter #1 ea 12/30/19 03/07/25 Rx omega-3 fatty acids-fish oil 684 1 cap PO DAILY 10/31/20 03/07/25 History mg-1,200 mg capsule,delayed release ferrous sulfate 325 mg (65 mg 325 mg PO DAILY 02/28/22 03/07/25 History iron) tablet glimepiride 4 mg tablet 4 mg PO QAM #90 tabs 10/24/22 03/07/25 Rx cholecalciferol (vitamin D3) 10 20 mcg (2 x 10 mcg (400 unit)) PO 06/18/23 03/07/25 Rx mcg (400 unit) capsule DAILY #60 caps telmisartan 80 mg tablet 80 mg PO DAILY #90 tabs 06/24/23 03/07/25 Rx pravastatin 40 mg tablet 40 mg PO DAILY #30 tabs 02/05/24 03/07/25 Rx hydrochlorothiazide 12.5 mg capsule 12.5 mg PO DAILY #30 caps 03/03/24 03/07/25 Rx metformin 1,000 mg tablet 1,000 mg PO BID #180 tabs 04/05/24 03/07/25 Rx carvedilol 3.125 mg tablet (Coreg) 3.125 mg PO Q12HR #60 tabs 03/09/25 Rx Allergies Allergy/AdvReac Type Severity Reaction Status Date / Time cephalexin Allergy Intermediate itching Verified 03/07/25 17:03 ezetimibe Allergy Intermediate Muscle Pain Verified 03/07/25 17:03 rosuvastatin Allergy Intermediate Muscle Pain Verified 03/07/25 17:03 simvastatin (Vytorin) Allergy Intermediate Muscle Pain Verified 03/07/25 17:03 tramadol Allergy Intermediate Hives Verified 03/07/25 17:03 acetaminophen (From Vicodin) AdvReac Intermediate Hives Verified 03/07/25 17:03 clarithromycin AdvReac Intermediate Nausea Verified 03/07/25 17:03 codeine AdvReac Intermediate Nausea Verified 03/07/25 17:03 hydrocodone (From Vicodin) AdvReac Intermediate Hives Verified 03/07/25 17:03 oxycodone AdvReac Intermediate Nausea Verified 03/07/25 17:03 Sulfa (Sulfonamide AdvReac Intermediate Nausea Verified 03/07/25 17:03 Antibiotics) TRAMADOL HCL Allergy Intermediate Hives Uncoded 06/30/23 11:43 Vital Signs Vital Signs - 24 hr 03/08/25 12:00 03/08/25 14:42 03/08/25 20:00 Temperature 36.1 C L Pulse Rate 84 82 82 Respiratory Rate 12 12 Blood Pressure 133/67 Pulse Oximetry 99 99 Oxygen Delivery Room Air 03/08/25 21:14 03/09/25 06:00 Temperature 36.6 C 36.7 C Pulse Rate 94 72 Respiratory Rate 20 18 Blood Pressure 108/60 131/62 Pulse Oximetry 97 97 Oxygen Delivery Exam Narrative: Exam today revealed her to be awake alert cooperative in no obvious acute distress, head normocephalic with no cranial bruit, ear nose throat examination normal, neck supple with no cervical bruit no thyromegaly no lymphadenopathy, heart regular without murmur, lungs clear to auscultation with no rhonchi or crepitations, abdomen is soft nontender with normal bowel sounds, neurologically she is awake alert oriented, speech not dysphasic not dysarthric not dysphonic, pupils round regular feels the vision full extraocular movements full facial sensation intact face symmetrical tongue midline uvula midline motor examination revealed her to have normal strength and tone in upper and lower extremities. She has decreased sensation distally in the lower extremities with positive Romberg's with eyes closed. There is no evidence of ataxia or dysmetria. Results Labs 03/09/25 10:31 03/09/25 10:31 Labs: Short CBC 03/09/25 Range/Units 10:31 WBC 9.4 (4.5-10.0) K/mm3 Hgb 12.6 (12.0-15.0) g/dL Hct 39.0 (37.0-47.0) % Plt Count 271 (150-375) k/mm3 BMP 03/09/25 10:31 Sodium 135 L Potassium 4.8 Chloride 99 Carbon Dioxide 29 BUN 26 H Creatinine 1.02 H Glucose 217 H Calcium 9.3
[2025-03-09 14:00] VITALS: BP 117/51; PULSE 84; RESP 18; TEMP 36.3; O2SAT 99
--- NOTE | 2025-03-09 16:58 | P.DS_ITS ---
DS: Admitting Diagnosis Discharge Date 03/09/25 Admitting Diagnosis Vision disturbance DS: Discharge Diagnosis Discharge Diagnosis (1) Hypertensive emergency: Code(s): I16.1 - Hypertensive emergency Status: Acute (2) Transient vision disturbance: Code(s): H53.9 - Unspecified visual disturbance Status: Acute DS: Summary Hospital Course Reason for hospitalization: Copied from [facility] 03/07: 84 y/o F with PMH of JUANITA, DM2, GERD and hypertension presents here with a transient balance and vision disturbance. The patient presents here from home via personal vehicle on 03/07 for further evaluation of disturbance in balance and vision. This morning around 10:00 a.m. she reports an episode of lightheadedness with associated balance disturbance and vision changes while had just stood to make a coffee. She described the vision disturbance as blurred, bilateral. Denies tunnel vision or darken of visions. She denied associated dizziness, headache, focal weakness, focal numbness, dysarthria,nausea, vomiting, or chest pain. She has a history of hypertension for which she took her blood pressure medications this morning and a history of diabetes, reported her blood sugar was in the 200s during the episode. No previously known history of CVA. Does report a few years ago she had a similar episode and had attributed the symptoms to her glucose, lasted around 45 minutes and resolved without her eating or drinking anything to improve her glucose. Initial VS at presentation: 97.9? F, HR 106, R 16, 236/86, and 99% on RA. ED workup showed: No leukocytosis, no anemia, normal coags, creatinine 1.14 and GFR 46 (1.04 and GFR 54 in 2022), glucose 199, initial troponin negative. 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 CXR showed no acute cardiopulmonary findings. EKG showed sinus tachycardia with occasional supraventricular premature complexes, possible left atrial enlargement, probable inferior NM of indeterminate age. Hospital Course: Transient Vision disturbance Hypertensive emergency likely etiology Transient balance disturbance and vision disturbance lasting for approximately 2 hours. Started at 10:00 a.m. on 02/04 and resolved around 12:00 p.m. on 02/04. Had similar episode a few years ago that resolved without intervention and lasted for 45 minutes. No prior knowledge of CVA, however seen on head CT today. Admitted for observation and telemetry. not candidate for thrombolytics or thrombectomy as her symptoms were transient. CXR showed no acute cardiopulmonary findings. Neurology consulted. 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 MRI of the brain documented old infarct in left cerebellum which could be additional aggravating factor with balance difficulty. -Follow balance, consider PT outpatient, She reports she frequently goes dancing DDx: TIA versus CVA verses hypertensive emergency versus dysrhythmia. IMAGING 03/[address] showed: 1. 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 No acute intracranial process. 2. Age-related changes including moderate diffuse volume loss and moderate scattered white matter hypoattenuation consistent with chronic small vessel ischemic disease. 03/08 Brain MRI showed 1. 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 2. Moderate nonspecific cerebral white matter disease, which likely represents chronic small vessel ischemic disease. 03/08 TTE LVED >70% LABS Lipid panel normal, HgbA1c 7.1 PLAN Continued statin and daily aspirin Can consider 30 day event monitoring per PCP Hypertension Hypertensive emergency Arrived significantly hypertensive at 236/86 despite taking a.m. antihypertensives. Given hydralazine 10 mg IVP in ED. Subsequently 187/81. Unclear cause of acute hypertension. Received 1 dose of hydralazine during admission. Blood pressure controlled otherwise 118/60-131/62 day of discharge. No flushing, stressful news or other obvious cause of acute elevation Continued home medications at home doses: HCTZ, telmisartan Started a low dose of carvedilol 3.125 BID Further workup outpatient Diabetes mellitus: A1C 6.3% in 2022. 03/08/25 7.1 home medication: Glimepiride, Held metformin during admission Resumed home meds for discharge Mixed hyperlipidemia due to type 2 diabetes mellitus: - continued home medication: Pravastatin - Lipid panel normal Diet: Diabetic Code Status: Full code Status at Discharge Cognitive/behavioral status at discharge: A&Ox4 Time Spent with Patient Time attestation: Total time spent providing and/or coordinating discharge services:58 minutes Exam Narrative: General - Awake and alert. No acute distress Eyes - PERRLA, EOM intact ENT - No thrush, No erythema Neck - No noticeable or palpable swelling Lymph Nodes - No lymphadenopathy Cardiovascular - RRR no m/r/g, no JVD Lungs: Clear to auscultation, No wheezing or use of accessory muscles, no crackles Skin - Skin warm and dry, no wounds or rashes Abdomen - Normal bowel sounds, abdomen soft and nontender Extremities - No edema, cyanosis or clubbing Musculoskeletal - 5/5 strength, normal range of motion, no swollen or erythematous joints. Neurological ? Alert and oriented x 3, CN 2-12 grossly intact. Psych: Normal mood and affect DS: Data Data Completed and Pending Labs on day of discharge: Labs from last 24 hours 03/09/25 03/09/25 03/09/25 11:39 10:31 07:52 WBC 9.4 RBC 4.53 Hgb 12.6 Hct 39.0 MCV 86.1 MCH 27.8 MCHC 32.3 RDW 13.3 Plt Count 271 MPV 9.3 Immature Gran % (Auto) 0.1 Neut % (Auto) 65.7 Lymph % (Auto) 24.1 Burke % (Auto) 5.6 Eos % (Auto) 3.5 Baso % (Auto) 1.0 Lymph # (Auto) 2.26 Burke # (Auto) 0.5 Eos # (Auto) 0.3 Baso # (Auto) 0.1 Abs Immat Gran (auto) 0.01 Absolute Neuts (auto) 6.2 Absolute Nucleated RBC 0.000 Nucleated RBC % 0.0 Sodium 135 L Potassium 4.8 Chloride 99 Carbon Dioxide 29 Anion Gap 7 BUN 26 H Creatinine 1.02 H Estim Creat Clear Calc 32 Estimated GFR 52 L Glucose 217 H POC Capillary Glucose 178 H 129 H Calcium 9.3 Phosphorus 3.8 Magnesium 1.8 03/08/25 19:45 WBC RBC Hgb Hct MCV MCH MCHC RDW Plt Count MPV Immature Gran % (Auto) Neut % (Auto) Lymph % (Auto) Burke % (Auto) Eos % (Auto) Baso % (Auto) Lymph # (Auto) Burke # (Auto) Eos # (Auto) Baso # (Auto) Abs Immat Gran (auto) Absolute Neuts (auto) Absolute Nucleated RBC Nucleated RBC % Sodium Potassium Chloride Carbon Dioxide Anion Gap BUN Creatinine Estim Creat Clear Calc Estimated GFR Glucose POC Capillary Glucose 212 H Calcium Phosphorus Magnesium Discharge Plan Discharge Attending physician on discharge: Gita Chanel Consulting providers: David Zacarias; Alban Rios; Monique Moreno; Dany Caruso; jM Pratt; Tai Morris; Endy Reid V. Discharging Clinician: Gita Chanel Anticipated Discharge Date/Time: 03/09/25 14:25 Patient Disposition: Home Activity: may shower Diet: low sodium Discharge Instructions: Follow up with your PCP in 1-2 weeks. Suspect a hypertensive emergency caused your symptoms but unclear cause for the increase in blood pressure. Discuss further workup with your PCP. Started a low dose of carvedilol for blood pressure. Check your blood pressure daily and monitor for dizziness. Goal blood pressure is 90/60-120/80. Continue aspirin and statin for stroke prevention Patient Instructions: Antibiotic Form Patient Language: Mohawk Stand Alone Forms: General Discharge Information Follow-up/Referrals: Servando,Milton Sandhu MD [Primary Care Provider, Unknown] - 2 Weeks Discharge Medications: New carvedilol [Coreg] 3.125 mg Tablet 3.125 mg PO Q12HR Qty: 60 0RF Continued aspirin 81 mg tablet,delayed release (DR/EC) 81 mg PO DAILY magnesium 250 mg tablet 250 mg PO DAILY ferrous sulfate 325 mg (65 mg iron) tablet 325 mg PO DAILY cholecalciferol (vitamin D3) 10 mcg (400 unit) capsule 20 mcg PO DAILY Qty: 60 0RF omega-3 fatty acids-fish oil 684-1,200 mg Capsule,Delayed Release(Dr/Ec) 1 cap PO DAILY (DME) blood sugar diagnostic Strip See Rx Instructions .ROUTE .MEDSUPPLY Qty: 100 12RF Rx Instructions: glucose test strips test \once daily with lancets (DME) blood-glucose meter Kit See Rx Instructions .ROUTE .MEDSUPPLY Qty: 1 0RF Rx Instructions: glucose meter test once daily-- Dx: E11.42 glimepiride 4 mg tablet 4 mg PO QAM Qty: 90 3RF telmisartan 80 mg tablet 80 mg PO DAILY Qty: 90 1RF pravastatin 40 mg tablet 40 mg PO DAILY Qty: 30 0RF Rx Instructions: NEEDS APPOINTMENT FOR FURTHER REFILLS hydrochlorothiazide 12.5 mg capsule 12.5 mg PO DAILY Qty: 30 0RF Rx Instructions: LAST REFILL UNTIL SEEN-NEEDS APPOINTMENT metformin 1,000 mg tablet 1,000 mg PO BID Qty: 180 1RF Date of admission: 03/08/25 18:24 Primary Care Provider: Servando,Milton Sandhu Admitting Provider: Celestino Ayala Attending physician on admission: Gita Chanel Condition: Stable Quality VTE Prophylaxis VTE prophylaxis: mechanical ordered Hospitalist MIPS Heart Failure (Exclusion) Patient has history of Heart Transplant or Left Ventricular Assistive Device?: No IF YES, STOP HERE Heart Failure (Qualifier) Patient has current or prior documentation of LVEF less than or equal to 40%, or mod/servere depressed LVSF?: No IF NO, STOP HERE
--- OUTSIDE RECORDS SUMMARY | 2025-03-10 07:43 | XMS_ITS | Clinical Summary ---
Author Organization [facility] Care Team Providers Care Personal Secretary Name Role Phone Unavailable Primary Care Provider [...]
--- OUTSIDE RECORDS SUMMARY | 2025-03-10 07:43 | XMS_ITS | Clinical Summary ---
Author Organization [facility] Address [address] [place] [address] Care Team Providers Care Dowel Sticker Operator Name Role Phone Unavailable Primary Care Provider Unavailabl e Source Comments [facility],non-owned Affiliates and Associated Physician Practices is amultiple site organization consisting of ambulatory clinics and hospital sitesin [place], [place], [place] and [place]. This disclosure is being madepursuant to the Care Everywhere program and may not contain all information available regarding this patient. Last updated 18.[facility] Allergies Active Allergy Reactions Criticality Noted Date Comments Cephalexin 11/09/2016 Clarithromycin 11/09/2016 Codeine 11/09/2016 Diazepam 11/09/2016 Oxycodone 11/09/2016 Sulfa Drugs 11/09/2016 Tramadol 11/09/2016 Medications * Be aware that medications may not be up to date on this document. Alwaysverify current medications with the patient. GEMFIBROZIL PO Activ e METFORMIN HCL PO Active GLIMEPIRIDE PO Activ e [place]-3 Fatty Acids (OMEGA 3 PO) Active Cholecalciferol (VITAMIN D PO) Activ e Magnesium Oxide -Mg Supplement 400 MG Active fluticasone propionate (FLONASE) 50 MCG/ACT nasal spray Trilla 1 Trilla into each nostril 2 times daily 1 [...]
--- OUTSIDE RECORDS SUMMARY | 2025-03-10 07:44 | XMS_ITS | Patient Health Record ---
Author Organization [facility] Address [address] [address] [place] [address] Care Team Providers Care Slab Installer Name Role Phone Milton Al Unavailable [phone] Reason For Referral No Information Medications Medication SIG (Take, Route, Frequency, Duration) Notes Start Date End Date Status Calcitriol 0.25 MCG 1 capsule Orally Onc e a day; Duration: 90 day(s) 09/10/2024 06/06/2025 Active Losartan Potassium 50 MG 1 tablet Orally Once a day; Duration: 90 09/10/2024 Active Ergocalciferol 1.25 MG (08508 UT) 1 capsule Orally Once a week; Duration: 90 day(s) 09/10/2024 06/06/2025 Active Problems Problem Type SNOMED Code ICD Code Onset Dates Problem Status W/U Status Risk Notes Problem Diabetic renal disease (016154251) Type 2 diabetes mellitus with diabetic chronic kidney disease (E11.22) Active confirmed Problem Vitamin D deficiency (49972880) Vitamin D deficiency, unspecified (E55.9) Active confirmed Problem Magnesium deficiency (066535288) 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) Active confirmed Problem Metabolic disorder (62170591) Metabolic disorder, unspecified (E88.9) Active confirmed Problem Proteinuria (99804690) Proteinuria, unspecified (R80.9) Active confirmed Problem Hyperlipidemia (45090685) Hyperlipidemia, unspecified (E78.5) Active confirmed Problem Essential hypertension (14094223) Essential hypertension (I10) Active confirmed Problem Chronic kidney disease stage 3A (disorder) (794874046) Chronic kidney disease, stage 3a (N18.31) Active confirmed Problem 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 [address] [address] 09/10/2024 Milton Al Chronic kidney disease, stage 3b N18.32 ; Essential hypertension I10 ; Hyperlipidemia, unspecified E78.5 ; Type 2 diabetes mellitus with diabetic chronic kidney disease E11.22 ; Proteinuria, unspecified R80.9 ; Magnesium deficiency E61.2 ; Vitamin D deficiency, unspecified E55.9 and 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, 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 [place] [address] [address] 10/22/2024 Milton Al Chronic kidney disease, stage 3a N18.31 ; Essential hypertension I10 ; Hyperlipidemia, unspecified E78.5 ; Type 2 diabetes mellitus with diabetic chronic kidney disease E11.22 ; Proteinuria, unspecified R80.9 ; Magnesium deficiency E61.2 ; Vitamin D deficiency, unspecified E55.9 and 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, 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 [place] [facility] [address] [address] 01/26/2025 Milton Al Chronic kidney disease, stage 3a N18.31 ; Essential hypertension I10 ; Hyperlipidemia, unspecified E78.5 ; Type 2 diabetes mellitus with diabetic chronic kidney disease E11.22 ; Proteinuria, unspecified R80.9 ; Magnesium deficiency E61.2 ; Vitamin D deficiency, unspecified E55.9 ; 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, 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 and Metabolic disorder, unspecified E88.9 [place] [address] [address] 09/10/2024 Milton Al Assessments Encounter Date Diagnosis [...] Name:Milton Al , 04/06/2025 02:15:00 PM, [address], [address],
== END 2025-03-09 17:02 | disposition home or self-care (01) | DRG 305 ==
LOC: ANHED 15:05 → ANH3MEDSUR 03-08 07:57
PROVIDERS: Emergency Medicine; Student in an Organized Health Care Education/Training Program; Admitting Provider Internal Medicine; Emergency Provider Emergency Medicine; PCP Specialist; Visit Provider Nurse Practitioner Acute Care
DX: I16.1 Hypertensive emergency (principal); I10 Essential (primary) hypertension; E11.40 Type 2 diabetes mellitus with diabetic neuropathy, unspecified; D50.9 Iron deficiency anemia, unspecified; K21.9 Gastro-esophageal reflux disease without esophagitis; R42 Dizziness and giddiness; H53.9 Unspecified visual disturbance; Z79.82 Long term (current) use of aspirin; Z87.891 Personal history of nicotine dependence; Z86.73 Personal history of transient ischemic attack (TIA), and cerebral infarction without residual deficits
CPT/HCPCS: 36415; 70450; 70553; 71045; 80048; 80053; 80061; 82948; 83036; 83735; 84100; 84484; 85025; 85610; 85730; 93005; 93306; 96374; 96375; 99285; A9270; A9577; J0360; J1815